=== PATIENT | male | born 1945 | race Caucasian/White ===

== ENCOUNTER → 2017-04-21 10:45 | Outpatient (CLI) | payer SELFPAY ==
--- NOTE | 2017-04-21 10:50 | RAD_ITS ---
STUDY: X-RAY - LUMBAR SPINE REASON FOR EXAM: Male, 71 years old. Pain TECHNIQUE: 5 view(s) of the lumbar spine were obtained. COMPARISON: None FINDINGS: Mild reverse S scoliosis. Diffuse spondylosis. Diffuse demineralization. Diffuse degenerative disc disease. Diffuse facet disease. Arterial calcifications. No compression deformities. Normal alignment. RAD/L/S Spine Min 4 Views IMPRESSION: Diffuse degenerative disc and facet disease with normal alignment and no compression deformity. Electronically Signed: Sreedhar Marrero MD at 8:34 EDT Tel , Service support ,
--- NOTE | 2017-04-21 10:50 | RAD_ITS ---
STUDY: X-RAY - PELVIS AND BILATERAL HIPS REASON FOR EXAM: Male, 71 years old. Back and hip pain TECHNIQUE: Radiological exam, hip, bilateral, with pelvis when performed; minimum of 5 views COMPARISON: None. FINDINGS: There is a non-specific bowel gas pattern. Normal bilateral iliac wings, sacroiliac joints and visualized sacrum. Normal bilateral superior and inferior pubic rami. Normal pubic symphysis. Normal bilateral ischial tuberosities. Mild bilateral hip osteoarthritis. Lower lumbar degenerative disease. Vascular calcifications. Diffuse demineralization. RAD/Hips B/L min 2 views w/ Pelvis IMPRESSION: Mild bilateral hip osteoarthritis. No acute osseous abnormality is evident. Electronically Signed: Sreedhar Marrero MD at 8:33 EDT Tel , Service support ,
--- NOTE | 2017-04-21 10:54 | RAD_ITS ---
STUDY: X-RAY - SACROILIAC JOINTS REASON FOR EXAM: Male, 71 years old. Pain TECHNIQUE: 3 view(s) of the sacroiliac joints were obtained. COMPARISON: None. FINDINGS: Normal bilateral sacroiliac joints. Normal visualized sacral ala and sacrum. Normal visualized iliac bones. Normal visualized soft tissue structures. Lower lumbar degenerative disease. RAD/S-I Jts 3 or More Views IMPRESSION: Normal x-ray examination of the bilateral sacroiliac joints. Electronically Signed: Sreedhar Marrero MD at 8:43 EDT Tel , Service support ,
[2017-04-21 12:13] LABS: Absolute Lymphocyte Count 1.07 X10^3/ul (0.83-4.51); Absolute Neutrophil Count 6.1 X10^3/uL (2.0-7.7); Basophil# 0.03 X10^3/uL; Basophil% 0.4 % (0-1); Eosinophil# 0.21 X10^3/uL; Eosinophils% 2.6 % (0-5); Hematocrit 40.7 % (40-54); Hemoglobin 13.5 g/dl (13.0-16.5); Lymphocyte # 1.07 X10^3/ul (4.0); Mean Corp Hgb Conc 33.2 g/gl (32-36); Mean Corpuscular Hgb 29.2 pg (27.0-32.0); Mean Corpuscular Volume 88.1 fL (80-94); Mean Platelet Vol. 10.4 fl (6.2-12.0); Monocyte# 0.77 X10^3/uL; Monocyte% 9.4 % (0-10); Neutrophil % 74.1 % (47-70); Platelet Count 328 K/mm3 (150-450); RBC Distribution Width CV 13.5 % (11.6-14.6); RBC Distribution Width SD 43.4 fl (35.1-43.9); Red Blood Count 4.62 M/mm3 (4.6-6.2); White Blood Count 8.2 K/mm3 (4.4-11.0)
[2017-04-21 12:14] LABS: POSITIVE COUNT NO; POSITIVE DIFFERENTIAL NO; POSITIVE MORPHOLOGY NO
[2017-04-21 16:10] LABS: ALB/GLOB Ratio 0.9 RATIO (0.9-2.4); AST(SGOT) 58 U/L (15-37); Alanine Aminotransfer ALT/SGPT 60 U/L (16-61); Albumin, Serum 3.4 g/dL (3.2-5.0); Alkaline Phosphatase 87 U/L (45-117); Anion Gap 8 (5-15); BUN 17 mg/dL (7-18); BUN/Creat Ratio 24.3 RATIO (10-20); Calcium,Total 8.5 mg/dL (8.5-10.1); Chloride 106 mmol/L (98-107); Cholesterol 199 mg/dL (200); EST Glomerular Filtration Rate 118 mL/min (>60); Est Glom Filt Rate - Afr Amer 143 mL/min (>60); Globulin 3.6 g/dL (2.2-4.2); Glucose 89 mg/dL (74-106); High Density Lipoprotein 39 mg/dL; Potassium 4.2 mmol/L (3.5-5.1); Sodium Level 141 mmol/L (136-145); Triglycerides 184 mg/dL; Very Low Density Lipoprotein 37 mg/dL (5-40)
== END ==
PROVIDERS: Family Provider Family Medicine; PCP Family Medicine; Visit Provider Family Medicine
DX: M25.551 Pain in right hip (principal); M25.552 Pain in left hip; M54.16 Radiculopathy, lumbar region; I69.398 Other sequelae of cerebral infarction
CPT/HCPCS: 36415; 72110; 72202; 73521; 80053; 80061; 85025

== ENCOUNTER → 2018-01-20 08:29 | Outpatient (CLI) | payer SELFPAY ==
--- NOTE | 2018-01-20 08:51 | RAD_ITS ---
STUDY: X-RAY CHEST REASON FOR EXAM: Male, 72 years old. History of cough. TECHNIQUE: AP and lateral views of the chest. COMPARISON: Comparison is made with prior study dated May 13, 2015. FINDINGS: There is evidence of increased interstitial markings with areas of confluence more prominent in the lower lobes suggestive of chronic interstitial fibrosis. No definite consolidation is seen. There is no demonstrated pleural abnormality. There is mild cardiac enlargement. Normal mediastinum and heena. Normal visualized pulmonary arteries. There is atherosclerotic calcification of the aortic arch with tortuosity. There are degenerative changes of the visualized thoracic spine. There is degenerative osteoarthritis of the bilateral shoulders. There is evidence of a prior fusion in the mid cervical spine. There is no demonstrated abnormality of the visualized soft tissue structures of the upper abdomen. RAD/Chest PA and Lateral IMPRESSION: Findings suggestive of interstitial fibrosis. No focal infiltrate is seen. Electronically Signed: Rony Giles MD at 8:54 EST Tel [phone], Service support ,
--- OUTSIDE RECORDS SUMMARY | 2018-03-08 01:48 | XMS RPT_ITS ---
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 hearing normal and external ears normal; negative hard of hearing Nose Nose: Positive external nose normal, septum normal and no nasal discharge; negative epistaxis or nasal polyp Mouth Mouth: Positive oral mucosae normal, no lesions, edentulous and posterior oropharynx is adequate; negative post nasal drip, malodorous breath or oral thrush present Mallampati Score: II: Mallampati Score Neck Neck: Positive normal visual inspection, full ROM and trachea midline; negative lymphadenopathy or JVD Chest Wall Chest: Positive normal inspection of the chest and symmetric chest movement; negative crepitus or tenderness Resp lung sounds: Positive clear to auscultation, normal expiratory time and diminished; negative wheezes, rhonchi, rales, use of accessory muscles, wheeze present on forced exhalation or dullness to percussion Cardio Cardiac: Positive regular rate, regular rhythm, S1 normal and S2 normal; negative murmur, rub or gallop GI GI: Positive normal to inspection and normal bowel sounds; negative distended, ascites or epigastric tenderness Genitourinary: Positive deferred Musc Musculoskeletal: Positive kyphosis and in a wheelchair; negative scoliosis Skin Pulmonary Skin Exam: Positive intact; negative rash, lesion, ulcers, erythema or dermal atrophy Pulses Pulse: Yes radial pulses present Extremities Extremities: Yes capillary refill normal, No clubbing, No cyanosis, Yes edema (Trace) Location: lower extremity Neuro Neurologic: Yes conversant, Yes cooperative, Yes normal cognition, Yes normal coordination, Yes understands questions Lymph Lymphatic: No lymphadenopathy Psych Appearance: Positive grossly normal Mental Status: Positive mental status grossly normal Mood: Positive congruent mood Affect: Positive normal affect Coding Level of Care Code Off vis,new,level 4 Diagnoses Chronic cough R05 Abnormal CXR R93.89 01/27/18 1259 <Electronically signed by Eliceo Mukherjee MD> Date Eliceo Mukherjee MD Cosigner Signature: Date (if applicable) CC: Wally Epstein MD CHEST PA AND LATERAL Observed: 01/20/2018 Status: F Source: JANA 8:51 AM [facility] REPOSITORY [facility] Imaging Services [address] [place] [address] Chest PA and Lateral MR#: [id number] Acct: [id number] Name: DAVID KRISHNAMURTHY Rep #: [id number] : 1945 M 72 From: Rony Giles MD PCP: Wally Epstein MD Status: REG CLI Study: Chest PA and Lateral Date of Exam: 01/20/18 Exam# [id number] Ordering Dr: Wally Epstein MD STUDY: X-RAY CHEST REASON FOR EXAM: Male, 72 years old. History of cough. TECHNIQUE: AP and lateral views of the chest. COMPARISON: Comparison is made with prior study dated May 13, 2015. FINDINGS: There is evidence of increased interstitial markings with areas of confluence more prominent in the lower lobes suggestive of chronic interstitial fibrosis. No definite consolidation is seen. There is no demonstrated pleural abnormality. There is mild cardiac enlargement. Normal mediastinum and heena. Normal visualized pulmonary arteries. There is atherosclerotic calcification of the aortic arch with tortuosity. There are degenerative changes of the visualized thoracic spine. There is degenerative osteoarthritis of the bilateral shoulders. There is evidence of a prior fusion in the mid cervical spine. There is no demonstrated abnormality of the visualized soft tissue structures of the upper abdomen. RAD/Chest PA and Lateral IMPRESSION: Findings suggestive of interstitial fibrosis. No focal infiltrate is seen. Electronically Signed: Rony Giles MD at 8:54 EST Tel [phone], Service support , CC: Wally Epstein MD Pay Station Department Manager: Signed CBC W/DIFF, AUTOMATED Collected: 04/21/2017 Status: F Source: JANA 10:55 AM [facility] REPOSITORY Order Comment: Order Date: 04/20/17 Order Info: 0184-1 - CBCD TYPE CODE TESTS RESULT OUT OF RANGE REFERENCE UNITS LAB L100.1000 4.4-11.0 K/mm3 Normal WBC 8.2 LAB L100.1200 4.6-6.2 M/mm3 Normal RBC 4.62 LAB L100.1300 13.0-16.5 g/dl Normal HGB 13.5 LAB L100.1400 40-54 % Normal HCT 40.7 LAB L100.1500 80-94 fL Normal MCV 88.1 LAB L100.1600 27.0-32.0 pg Normal MCH 29.2 LAB L100.1700 32-36 g/gl Normal MCHC 33.2 LAB L100.1810 11.6-14.6 % Normal RDW CV 13.5 LAB L100.1820 35.1-43.9 fl Normal RDW SD 43.4 LAB L100.1900 150-450 K/mm3 Normal PLT 328 LAB L100.2000 6.2-12.0 fl Normal MPV 10.4 LAB L100.2100 47-70 % High NEUT% 74.1 LAB L100.2200 19-41 % Low LY% 13.0 LAB L100.2300 0-10 % Normal MONO% 9.4 LAB L100.2400 0-5 % Normal EO% 2.6 LAB L100.2500 0-1 % Normal BASO% 0.4 LAB L100.2550 0.0-0.9 % Normal IM GRAN % 0.500 Result Comment: IG% - Immature Granulocytes (promyelocytes, myelocytes and metamyelocytes) > 1% indicates that a LEFT SHIFT is Present. LAB L100.2620 2.0-7.7 X10 3/uL Normal Absolute Neut 6.1 LAB L100.2720 0.83-4.51 X10 3/ul Normal Absolute Lymph 1.07 Performed By: #### L100.0100, L500.4050, L500.4100 #### [facility] [address] [place], [place], [id number] COMPREHENSIVE METABOLIC Collected: 04/21/2017 Status: F Source: JANA JAY 10:55 AM [facility] REPOSITORY Order Comment: Order Date: 04/20/17 Order Info: [id number] - CMP Order Info: 26350-8 - LIPID TYPE CODE TESTS RESULT OUT OF RANGE REFERENCE UNITS LAB L501.0100 74-106 mg/dL Normal GLU 89 Result Comment: Please note revised GLUCOSE reference range effective 2017. LAB L501.1000 7-18 mg/dL Normal BUN 17 LAB L501.1100 0.70-1.30 mg/dL Normal CREAT,SERUM 0.70 Result Comment: The validity of the calculated GFR AND GFRAA in patients over 70 years has not been determined. Clinical correlation is essential. LAB L501.1110 >60 mL/min Normal EST GFR 118 Result Comment: Non- GFR Calc LAB L501.1115 >60 mL/min Normal EST GFR - AA 143 Result Comment: GFR Calc LAB L501.1300 10-20 RATIO High BUN/CRE 24.3 LAB L501.1500 6.4-8.2 g/dL T Normal PROT 7.0 LAB L501.1800 3.2-5.0 g/dL Normal ALB 3.4 LAB L501.1950 2.2-4.2 g/dL Normal GLOB 3.6 LAB L501.2000 0.9-2.4 RATIO Normal A/G 0.9 LAB L501.2200 8.5-10.1 mg/dL CA Normal 8.5 LAB L501.4100 15-37 U/L High AST 58 LAB L501.4305 45-117 U/L Normal ALK P 87 LAB L501.4405 16-61 U/L Normal ALT 60 Result Comment: Please note revised ALT reference range effective 2017. LAB L501.4600 0.20-1.00 mg/dL Normal T BILI 0.60 LAB L501.5300 136-145 mmol/L Normal NA 141 LAB L501.5600 3.5-5.1 mmol/L Normal K 4.2 LAB L501.5900 98-107 mmol/L Normal CL 106 LAB L501.6100 21.0-32.0 mmol/L Normal CO2 27.0 LAB L501.6200 5-15 Normal GAP 8 Performed By: #### L100.0100, L500.4050, L500.4100 #### [facility] [address] [place], [address] LIPID PROFILE Collected: 04/21/2017 Status: F Source: NABB 10:55 AM [facility] REPOSITORY Order Comment: Order Date: 04/20/17 Order Info: [id number] - CMP Order Info: [id number] - LIPID TYPE CODE TESTS RESULT OUT OF RANGE REFERENCE UNITS LAB L501.4900 200 mg/dL Normal CHOL 199 Result Comment: <200 mg/dL Desirable 200-240 mg/dL Borderline >240 mg/dL High Risk LAB L501.5000 mg/dL Normal TRIG 184 Result Comment: The drugs N-Acetylcysteine and Metamizole may falsely depress this assay. Serum Triglycerides Reference Interval Normal <150 mg/dL Borderline high 150 - 199 mg/dL High 200 - 499 mg/dL Very High > or = 500 mg/dL LAB L501.6400 mg/dL Low HDL 39 Result Comment: The drugs N-Acetylcysteine and Metamizole may falsely depress this assay. Reference Range HDL <40 mg/dL Low HDL Cholesterol HDL >or= 60 mg/dL High HDL Cholesterol LAB L501.6500 0-130 mg/dL Normal LDL 123 LAB L501.6600 5-40 mg/dL Normal VLDL 37 Performed By: #### L100.0100, L500.4050, L500.4100 #### [facility] [address] [place], [address] S-I JTS 3 OR MORE Observed: 04/21/2017 Status: F Source: NABB VIEWS 10:55 AM [facility] REPOSITORY [facility] Imaging Services [address] [place] [address] S-I Jts 3 or More Views MR#: [id number] Acct: [id number] Name: DAVID KRISHNAMURTHY Naila Rep #: [id number] : 1945 M 71 From: Sreedhar Marrero MD PCP: Wally Epstein MD Status: REG CLI Study: S-I Jts 3 or More Views Date of Exam: 04/21/17 Exam# [id number] Ordering Dr: Arun Edwards MD STUDY: X-RAY - SACROILIAC JOINTS REASON FOR EXAM: Male, 71 years old. Pain TECHNIQUE: 3 view(s) of the sacroiliac joints were obtained. COMPARISON: None. FINDINGS: Normal bilateral sacroiliac joints. Normal visualized sacral ala and sacrum. Normal visualized iliac bones. Normal visualized soft tissue structures. Lower lumbar degenerative disease. RAD/S-I Jts 3 or More Views IMPRESSION: Normal x-ray examination of the bilateral sacroiliac joints. Electronically Signed: Sreedhar Marrero MD at 8:43 EDT Tel , Service support , CC: Wally Epstein MD; Arun Edwards MD Pay Station Department Manager: Signed HIPS B/L MIN 2 Observed: 04/21/2017 Status: F Source: NABB VIEWS W/ PELVIS 10:51 AM [facility] REPOSITORY [facility] Imaging Services [address] [place] [address] Hips B/L min 2 views w/ Pelvis MR#: [id number] Acct: [id number] Name: DAVID KRISHNAMURTHY Rep #: [id number] : 1945 71 From: Sreedhar Marrero MD PCP: Wally Epstein MD Status: REG CLI Study: Hips B/L min 2 views w/ Pelvis Date of Exam: 04/21/17 Exam# [id number] Ordering Dr: Arun Edwards MD STUDY: X-RAY - PELVIS AND BILATERAL HIPS REASON FOR EXAM: Male, 71 years old. Back and hip pain TECHNIQUE: Radiological exam, hip, bilateral, with pelvis when performed; minimum of 5 views COMPARISON: None. FINDINGS: There is a non-specific bowel gas pattern. Normal bilateral iliac wings, sacroiliac joints and visualized sacrum. Normal bilateral superior and inferior pubic rami. Normal pubic symphysis. Normal bilateral ischial tuberosities. Mild bilateral hip osteoarthritis. Lower lumbar degenerative disease. Vascular calcifications. Diffuse demineralization. RAD/Hips B/L min 2 views w/ Pelvis IMPRESSION: Mild bilateral hip osteoarthritis. No acute osseous abnormality is evident. Electronically Signed: Sreedhar Marrero MD at 8:33 EDT Tel , Service support , CC: Wally Epstein MD; Arun Edwards MD Pay Station Department Manager: Signed L/S SPINE MIN 4 Observed: 04/21/2017 Status: F Source: NABB VIEWS 10:51 AM [facility] REPOSITORY [facility] Imaging Services [address] [place] [address] L/S Spine Min 4 Views MR#: [id number] Acct: [id number] Name: DAVID KRISHNAMURTHY Rep #: [id number] : 1945 M 71 From: Sreedhar Marrero MD PCP: Wally Epstein MD Status: REG CLI Study: L/S Spine Min 4 Views Date of Exam: 04/21/17 Exam# [id number] Ordering Dr: Arun Edwards MD STUDY: X-RAY - LUMBAR SPINE REASON FOR EXAM: Male, 71 years old. Pain TECHNIQUE: 5 view(s) of the lumbar spine were obtained. COMPARISON: None FINDINGS: Mild reverse S scoliosis. Diffuse spondylosis. Diffuse demineralization. Diffuse degenerative disc disease. Diffuse facet disease. Arterial calcifications. No compression deformities. Normal alignment. RAD/L/S Spine Min 4 Views IMPRESSION: Diffuse degenerative disc and facet disease with normal alignment and no compression deformity. Electronically Signed: Sreedhar Marrero MD at 8:34 EDT Tel , Service support , CC: Wally Epstein MD; Arun Edwards MD Pay Station Department Manager: Signed ALLERGIES ALLERGIES DATE TYPE / CODE NAME / CODE REACTION SEVERITY SOURCE 02/22/2018 Drug albuterol/F00 acted funny [place] [facility] Allergy/4160 [id number]([facility] Hospital 8[address]43(SNOMED M) Repository CT) 05/08/2015 Drug No Known Unknown [facility] Allergy/4160 Allergies/F00 Hospital 02442(SNOMED [id number](RXNOR Repository CT) M) ENCOUNTERS ENCOUNTERS ADMIT/DISCHARGE ACCOUNT ADMITTING ENCOUNTER LOCATION SOURCE NUMBER CLASS 02/22/2018 [id number] [place] [facility] ing:PAVLAB Repository 02/22/2018/ [id number] Ambulatory [facility] [place] [facility] 0 [place] Repository 02/09/2018 [id number] Ambulatory [place] [facility] ing:PSN Repository 02/09/2018 [id number] Ambulatory [facility]Building:[facility] [place] [facility] Repository 01/27/2018/ [id number] Ambulatory B[facility]Building:B [place] 8 1 [place] Repository 01/20/2018 [id number] Ambulatory [facility] 4 [facility] ing:MTRAD Repository 04/21/2017 [id number] Ambulatory [place] [facility] ing:MTLAB Repository PAYERS PAYERS ENCOUNTER GUARANTOR PAYER SUBSCRIBER SOURCE 02/22/2018 DAVID Yoo Primary [facility] [place] [id number] CR Insurance:HAYDEN ARREDONDOB: [address] [id number] [address]Blx: GROUPPolicy Number: Repository Effective (HP) Date: [address] [address]SA: 02/22/2018 Secondary NOT GIVENUNK [place] Insurance:SELF PAY [facility] Number: Effective Repository Date:2018-02-22 02/22/2018 DAVID Yoo Primary NOT GIVENUNK [place] [id number] CR Insurance:SELF PAY [address] [address]Adh: Number: Effective Repository Date:2018-02-11 () 02/09/2018 DAVID Yoo Primary Insurance:[facility] DAVID Yoo [place] [id number] CR PACKAGE PLANPolicy YODERDOB: [address], Number: [id number] [address]Rgv: [id number] Repository Date:2018-01-27 () 02/09/2018 Secondary NOT GIVENUNK [place] [facility] Insurance:SELF PAY [facility] Number: Effective Repository Date:2018-01-27 02/09/2018 DAVID Yoo Primary Insurance:[facility] DAVID Yoo [place] [id number] CR PACKAGE PLANPolicy YODERDOB: [address], Number: [id number] Alamos Medical Center [address]Kms: [id number] Repository Date:2018-01-27 () 02/09/2018 Secondary NOT GIVENUNK [place] Insurance:SELF PAY [facility] Number: Effective Repository Date:2018-02-09 01/27/2018 DAVID Yoo Primary NOT GIVENUNK [place] [id number] CR Insurance:SELF PAY [address] [address]Ayt: Number: Effective Repository Date:2018-01-27 () 01/20/2018 DAVID Yoo Primary Insurance:[facility] DAVID [place] [id number] CR PACKAGE PLANPolicy YODERDOB: [address], Number: [id number] [facility] [address]Kjx: [id number] Repository Date:2018-01-20 () 01/20/2018 Secondary NOT GIVENUNK [place] Insurance:SELF PAY [facility] Number: Effective Repository Date:2018-01-20 04/21/2017 DAVID Yoo Primary NOT GIVENUNK [place] [id number] Insurance:SELF PAY [address] [address]Ntb: Number: Effective Repository Date:2017-04-21 ()
== END ==
PROVIDERS: Family Provider Family Medicine; PCP Family Medicine; Referring Provider Family Medicine; Visit Provider Family Medicine
DX: R05 Cough (principal)
CPT/HCPCS: 71046

== ENCOUNTER → 2018-02-09 06:33 | Outpatient (CLI) | payer SELFPAY, OTHER ==
[2018-01-27 09:35] VITALS: BMI 26.6
--- NOTE | 2018-02-09 06:36 | CT_ITS ---
STUDY: CT CHEST/THORAX WITHOUT CONTRAST REASON FOR EXAM: Male, 72 years old. Cough. RADIATION DOSAGE (If Supplied By Facility): CTDIvol = ( 18.72 ) mGy, DLP = ( 567.45 ) mGycm TECHNIQUE: Transaxial imaging was performed without the administration of intravenous contrast material. Multiplanar coronal and sagittal images were reformatted. Individualized dose optimization techniques were used for this CT. COMPARISON: Upright AP and lateral chest x-ray January 20, 2018. FINDINGS: There is chronic appearing mild, central peribronchial thickening as well as segmental and subsegmental zones of chronic appearing reticular interstitial change. A subpleural 2.45 x 1.8 x 2.55 cm bleb is seen in the anteromedial left upper lobe. There is no demonstrated pleural abnormality. Normal heart and pericardium. There are calcifications of the coronary arteries. There are occasional nonspecific lymph nodes in the mediastinum subcarinal tissues, and aorticopulmonary window. Normal hilar regions. Normal unenhanced pulmonary arteries. There is atherosclerotic calcification of the aortic arch and descending thoracic aorta. There is no demonstrated aneurysm. There is an increased kyphosis of the thoracic spine. There are multi-level degenerative changes of the thoracic spine. There is diffuse decreased attenuation of the hepatic parenchyma, consistent with fatty metamorphosis. CT/Chest without Contrast IMPRESSION: 1. Chronic perihilar bronchial thickening and chronic, fibrotic interstitial changes noted in both lungs. No pneumonic infiltrate. 2. Prescribed calcifications of the coronary arteries and thoracic aorta. 3. Demineralization of the osseous structures. Multilevel degenerative changes of the spine. 4. Fatty infiltration of the liver. Electronically Signed: Alexis Santos MD at 20:03 EST , Service support ,
--- NOTE | 2018-02-09 12:58 | PFT ---
INTRODUCTION: The patient is a 72-year-old male that presents for pulmonary function testing secondary to a diagnosis of cough. Respiratory therapy reports good patient effort. Bronchodilators were used during testing. INTERPRETATION: Forced expiration spirometry demonstrates no evidence of a large airways obstructive ventilatory defect. There was no significant response to aerosolized bronchodilators, based upon strict ATS criteria. Spirograms are of fair quality and plateau normally. Body plethysmography was performed and reveals a decreased TLC to 3.25 L, 71% of predicted, indicative of a mild restrictive ventilatory defect. The remainder of the lung volumes are symmetrically reduced. Diffusing capacity by single breath CO is moderately reduced at 48% of predicted. IMPRESSION: These pulmonary function studies demonstrate the presence of a mild restrictive ventilatory defect with a disproportionate reduction in diffusing capacity. There are no previous pulmonary function studies available for comparison.
== END ==
PROVIDERS: Family Provider Family Medicine; PCP Family Medicine; Referring Provider Internal Medicine Critical Care Medicine; Visit Provider Internal Medicine Critical Care Medicine
DX: R05 Cough (principal); R93.89 Abnormal findings on diagnostic imaging of other specified body structures
CPT/HCPCS: 71250; 94060; 94726; 94729

== ENCOUNTER → 2018-02-22 09:22 | Outpatient (CLI) | payer OTHER, SELFPAY ==
[2018-02-22 09:15] VITALS: BMI 26.6
[2018-02-22 10:29] LABS: Erythrocyte Sedimentation Rate 27 mm/hr (0-20)
[2018-02-22 10:31] LABS: CRP 8.56 mg/L (0.0-3.0); Rheumatoid Factor < 10.0 IU/mL (<15)
[2018-02-24 03:08] LABS: Cytoplasmic Ab (C-ANCA) <1:20 titer (Neg:<1:20)
[2018-02-24 09:55] LABS: CCP IgG Antibodies 32 units (0-19); Perinuclear Ab (P-ANCA) <1:20 titer (Neg:<1:20)
[2018-02-24 09:58] LABS: ANTINUCLEAR ANTIBODIES DIRECT Negative (Negative)
== END ==
PROVIDERS: Family Provider Family Medicine; PCP Family Medicine; Referring Provider Internal Medicine Critical Care Medicine; Visit Provider Internal Medicine Critical Care Medicine
DX: J84.10 Pulmonary fibrosis, unspecified (principal); R05 Cough; R93.89 Abnormal findings on diagnostic imaging of other specified body structures
CPT/HCPCS: 36415; 85652; 86038; 86140; 86200; 86225; 86235; 86256; 86431

== ENCOUNTER → 2018-03-30 10:43 | Outpatient (CLI) | payer SELFPAY ==
[2018-02-22 09:15] VITALS: BMI 26.6
--- NOTE | 2018-03-30 10:48 | RAD_ITS ---
STUDY: X-RAY - PELVIS REASON FOR EXAM: Male, 72 years old. Pain, arthritis TECHNIQUE: One view of the pelvis was obtained. COMPARISON: Bilateral hips dated April 21, 2017 FINDINGS: There is a non-specific bowel gas pattern. There are diffuse vascular calcifications. There are moderate degenerative changes in the lower lumbar spine. The visualized iliac wings, sacroiliac joints and sacrum are unremarkable. No abnormalities are seen in the visualized superior and inferior pubic rami. Normal appearing pubic symphysis. The visualized ischial tuberosities are unremarkable. The proximal right femur shows no significant abnormalities. The right acetabulum shows no significant abnormalities. There is mild articular joint space narrowing of the right hip. The proximal left femur shows no significant abnormalities. The left acetabulum shows no significant abnormalities. There is mild articular joint space narrowing of the left hip. RAD/Pelvis 1 or 2 Views IMPRESSION: Mild degenerative changes are again seen in both hips. Moderate degenerative changes are again seen in the visualized lower spine. Electronically Signed: Diann Boone MD at 11:32 EST , Service support ,
[2018-03-30 11:52] LABS: Absolute Lymphocyte Count 1.17 X10^3/ul (0.83-4.51); Absolute Neutrophil Count 4.9 X10^3/uL (2.0-7.7); Basophil# 0.03 X10^3/uL; Basophil% 0.4 % (0-1); Eosinophil# 0.36 X10^3/uL; Hematocrit 40.9 % (40-54); Hemoglobin 13.3 g/dl (13.0-16.5); Lymphocyte # 1.17 X10^3/ul (4.0); Lymphocyte % 16.3 % (19-41); Mean Corp Hgb Conc 32.5 g/gl (32-36); Mean Corpuscular Hgb 28.4 pg (27.0-32.0); Mean Corpuscular Volume 87.2 fL (80-94); Mean Platelet Vol. 9.9 fl (6.2-12.0); Monocyte# 0.67 X10^3/uL; Monocyte% 9.4 % (0-10); Neutrophil # 4.88 X10^3/uL (2.7-7.7); Neutrophil % 68.2 % (47-70); POSITIVE COUNT NO; POSITIVE DIFFERENTIAL NO; POSITIVE MORPHOLOGY NO; Platelet Count 417 K/mm3 (150-450); RBC Distribution Width CV 13.4 % (11.6-14.6); RBC Distribution Width SD 42.5 fl (35.1-43.9); Red Blood Count 4.69 M/mm3 (4.6-6.2); White Blood Count 7.2 K/mm3 (4.4-11.0)
[2018-03-30 12:15] LABS: ALB/GLOB Ratio 0.8 RATIO (0.9-2.4); AST(SGOT) 37 U/L (15-37); Alanine Aminotransfer ALT/SGPT 37 U/L (16-61); Albumin, Serum 3.4 g/dL (3.2-5.0); Alkaline Phosphatase 112 U/L (45-117); Anion Gap 8 (5-15); BUN 18 mg/dL (7-18); BUN/Creat Ratio 22.9 RATIO (10-20); Calcium,Total 8.2 mg/dL (8.5-10.1); Chloride 98 mmol/L (98-107); Creatinine, Serum 0.79 mg/dL (0.70-1.30); EST Glomerular Filtration Rate 103 mL/min (>60); Est Glom Filt Rate - Afr Amer 124 mL/min (>60); Globulin 4.1 g/dL (2.2-4.2); Glucose 93 mg/dL (74-106); Potassium 3.7 mmol/L (3.5-5.1); Protein, Total 7.5 g/dL (6.4-8.2); Sodium Level 134 mmol/L (136-145)
[2018-04-05 15:27] LABS: CCP IgG Antibodies 36 units (0-19); HEPATITIS B SURFACE AG Negative (Negative); HLA B27 Negative (.); Hep B Surface Antibodies Non Reactive (.); Hep C Antibodies 0.2 s/co ratio (0.0-0.9)
== END ==
PROVIDERS: Family Provider Family Medicine; PCP Family Medicine; Referring Provider Internal Medicine Rheumatology; Visit Provider Internal Medicine Rheumatology
DX: L40.59 Other psoriatic arthropathy (principal); L40.8 Other psoriasis; J84.10 Pulmonary fibrosis, unspecified
CPT/HCPCS: 36415; 72170; 80053; 81374; 85025; 86200; 86706; 86803; 87340

== ENCOUNTER → 2018-07-20 | Outpatient (CLI) | payer SELFPAY ==
[2018-02-22 09:15] VITALS: BMI 26.6
--- NOTE | 2018-07-20 11:37 | RAD_ITS ---
STUDY: X-RAY CHEST REASON FOR EXAM: Male, 73 years old. Cough, shortness of breath, bronchitis TECHNIQUE: PA and lateral views of the chest. COMPARISON: 01/20/2018 FINDINGS: Status post anterior cervical discectomy and fusion lower cervical spine. The lungs are clear and expanded. There is no demonstrated pleural abnormality. There is moderate cardiac enlargement. Normal mediastinum and heena. Normal visualized pulmonary arteries. Normal visualized aortic arch and descending thoracic aorta. Normal visualized thoracic spine. Normal visualized ribs, clavicles, and shoulders. There is no demonstrated abnormality of the visualized soft tissue structures of the upper abdomen. RAD/Chest PA and Lateral IMPRESSION: No active disease. Electronically Signed: Jonas Holder MD at 12:02 EDT Tel , Service support ,
== END | disposition home or self-care (01) ==
LOC: MTRAD 11:32
PROVIDERS: Family Provider Family Medicine; PCP Family Medicine; Referring Provider Family Medicine; Visit Provider Family Medicine
DX: J20.9 Acute bronchitis, unspecified (principal)
CPT/HCPCS: 71046

== ENCOUNTER → 2018-08-03 | Outpatient (CLI) | payer OTHER, SELFPAY ==
[2018-02-22 09:15] VITALS: BMI 26.6
[2018-08-03 12:26] LABS: Absolute Lymphocyte Count 0.98 X10^3/ul (0.83-4.51); Basophil# 0.03 X10^3/uL; Basophil% 0.4 % (0-1); Eosinophil# 0.47 X10^3/uL; Eosinophils% 5.6 % (0-5); Hematocrit 37.2 % (40-54); Hemoglobin 12.3 g/dl (13.0-16.5); Lymphocyte # 0.98 X10^3/ul (4.0); Lymphocyte % 11.6 % (19-41); Mean Corp Hgb Conc 33.1 g/gl (32-36); Mean Corpuscular Hgb 28.9 pg (27.0-32.0); Mean Corpuscular Volume 87.5 fL (80-94); Mean Platelet Vol. 9.6 fl (6.2-12.0); Monocyte# 0.91 X10^3/uL; Monocyte% 10.8 % (0-10); Neutrophil % 70.9 % (47-70); Platelet Count 480 K/mm3 (150-450); RBC Distribution Width CV 13.7 % (11.6-14.6); RBC Distribution Width SD 43.4 fl (35.1-43.9); Red Blood Count 4.25 M/mm3 (4.6-6.2); White Blood Count 8.5 K/mm3 (4.4-11.0)
[2018-08-03 12:35] LABS: POSITIVE COUNT NO; POSITIVE DIFFERENTIAL NO; POSITIVE MORPHOLOGY NO
[2018-08-03 12:57] LABS: BNP,B-Type NATRIURETIC PEPTIDE 17.2 pg/mL (0-100)
[2018-08-03 13:11] LABS: ALB/GLOB Ratio 0.9 RATIO (0.9-2.4); AST(SGOT) 34 U/L (15-37); Alanine Aminotransfer ALT/SGPT 33 U/L (16-61); Albumin, Serum 3.2 g/dL (3.2-5.0); Alkaline Phosphatase 98 U/L (45-117); Anion Gap 3 (5-15); BUN 14 mg/dL (7-18); BUN/Creat Ratio 20.9 RATIO (10-20); Calcium,Total 8.5 mg/dL (8.5-10.1); Chloride 108 mmol/L (98-107); Creatinine, Serum 0.67 mg/dL (0.70-1.30); EST Glomerular Filtration Rate 124 mL/min (>60); Est Glom Filt Rate - Afr Amer 150 mL/min (>60); Globulin 3.4 g/dL (2.2-4.2); Glucose 101 mg/dL (74-106); Potassium 3.9 mmol/L (3.5-5.1); Protein, Total 6.6 g/dL (6.4-8.2); Sodium Level 141 mmol/L (136-145)
== END | disposition home or self-care (01) ==
LOC: MFPLAB 11:07
PROVIDERS: Family Provider Family Medicine; PCP Family Medicine; Referring Provider Family Medicine; Visit Provider Family Medicine
DX: R05 Cough (principal)
CPT/HCPCS: 36415; 80053; 83880; 85025

== ENCOUNTER → 2018-08-23 | Outpatient (CLI) | payer OTHER, SELFPAY ==
[2018-08-23 09:19] VITALS: BMI 26.5
== END | disposition home or self-care (01) ==
LOC: PSN 11:16
PROVIDERS: Family Provider Family Medicine; PCP Family Medicine; Referring Provider Nurse Practitioner Acute Care; Visit Provider Nurse Practitioner Acute Care
DX: J47.1 Bronchiectasis with (acute) exacerbation (principal)
CPT/HCPCS: 94667

== ENCOUNTER 2019-11-16 14:44 | Inpatient (IN) | payer OTHER, SELFPAY ==
[2019-09-21 10:50] VITALS: BMI 26.5
[2019-11-16] VITALS (10 sets, daily range): BP systolic 124–159; BP diastolic 73–105; PULSE 72–85; RESP 16–28; TEMP 36.3–36.6; O2SAT 92–99; BMI 30.2; BMI 21.7; BMI 21.8
--- NOTE | 2019-11-16 15:02 | EKG12_ITS ---
Test Reason : Blood Pressure : / mmHG Vent. Rate : 074 BPM Atrial Rate : 074 BPM P-R Int : 140 ms QRS Dur : 084 ms QT Int : 434 ms P-R-T Axes : 034 009 031 degrees QTc Int : 481 ms Normal sinus rhythm Prolonged QT Abnormal ECG Confirmed by KENYATTA BARBOZA, MEAGHAN ([id number]), deputy editor in chief RITA SIMENTAL ([id number]) on 11/22/2019 11:05:13 AM Referred By: MAYO Confirmed By:SILVER YOU MD
--- NOTE | 2019-11-16 15:03 | CT_ITS ---
STUDY: CT BRAIN WITHOUT CONTRAST REASON FOR EXAM: Male, 74 years old. Dizziness. RADIATION DOSAGE (If Supplied By Facility): CTDIvol = ( 60.81 ) mGy, DLP = ( 1112.69 ) mGycm TECHNIQUE: Transaxial CT imaging of the brain was performed without administration of intravenous contrast material. Individualized dose optimization techniques were used for this CT. COMPARISON: CT of the head, 01/09/2011. FINDINGS: Normal soft tissue structures. Normal calvarium. Normal size ventricles and extra-axial spaces for the patient''s age. There are areas of decreased attenuation within the white matter tracts of the supratentorial brain, consistent with microvascular disease changes. Normal basal ganglia and thalami. Normal brainstem. Normal cerebellum. There is no intracranial hemorrhage. There are no findings of an acute ischemic infarction. There is mucoperiosteal reaction within the ethmoid air cells and bilateral maxillary sinuses. CT/Brain/Head without Contrast IMPRESSION: 1. Chronic involutional changes without evidence of acute intracranial or calvarial abnormality. 2. Sinusitis. Electronically Signed: Chris Servin DO at 16:44 EDT Tel [phone], Service support ,
--- NOTE | 2019-11-16 15:04 | ED.DCSUM_ITS ---
History of Present Illness Chief Complaint: Weakness Informant: Patient Narrative: 74-year-old male with past medical history of rheumatoid arthritis, pulmonary fibrosis, CVA, cervical fracture presents with concern for weakness. Presents with his who states that he has been unable to ambulate for the past 2 days given he is so weak. Describes it as a generalized weakness. Denies any chest pain, shortness of breath, nausea, vomiting, urinary symptoms. Denies any falls. Patient states that he has had a slightly increased cough. Past Medical History - Allergies and Home Meds Allergies/Adverse Reactions: Allergies albuterol Adverse Reaction (Mild, Verified 11/16/19 14:47) acted funny Prior records reviewed: Yes Past Medical History: - - RA, pulmonary fibrosis, CVA, cervical fracture Surgical History: tonsillectomy, - - Back surgery s/p trauma. Lives: Spouse/ Significant Other Smoking Status: Former smoker Alcohol: None Drugs: None - Family History Maternal Family History: Family History (Last Reviewed 09/21/19 @ 10:48 by Jayne Li) Mother Cancer Sister Diabetes Father Heart disease Family History: Reports: No pertinent history Paternal Family History: Family History (Last Reviewed 09/21/19 @ 10:48 by Jayne Li) Mother Cancer Sister Diabetes Father Heart disease Family History: Reports: No pertinent history Review of Systems General: Denies: Chills, Fever, Sweats Eyes: Denies: Visual changes - bilaterally, Diplopia ENT: Denies: Rhinorrhea, Sore throat Cardiovascular: Denies: Chest pain, Palpitations Respiratory: Denies: Dyspnea, Cough, Dyspnea on exertion Gastrointestinal: Denies: Abdominal pain, Nausea, Vomiting, Diarrhea, Melena, Hematochezia Genitourinary: Denies: Dysuria, Hematuria, Frequency Musculoskeletal: Denies: Back pain, Extremity Pain Skin: Denies: Rash, Wounds Neurological: Reports: Weakness. Denies: Headache, Numbness Physical Exam Vital Signs/Narrative: Vital Signs Temp Pulse Resp BP Pulse Ox 11/16/19 14:45 97.8 F 82 16 124/73 H 94 Inital Vital Signs reviewed: Yes General: Well nourished, Well developed, No Acute Distress Head: Normocephalic, Atraumatic Eyes: Perrl, EOMI ENT: Moist mucous membranes, No rhinorrhea Neck: Supple, Nontender Cardiovascular: Regular rate, Regular rhythm, No murmurs Respiratory: No distress, CTA bilaterally, Chest nontender Abdomen: Soft, Nontender, Nondistended, Normal bowel sounds Back: Nontender, Normal Inspection Extremities: Nontender, No edema Skin: Normal color, No rash Neurological: Alert, Oriented x3, Cranial nerves II-XII grossly intact, Normal Strength, Normal Sensation Psychological: Normal affect, Normal Mood Diagnostic/Tx/Re-eval Chest X-Ray - ED: 1 View, - - Bilateral infiltrates Clinical Impression(s) from Imaging Studies Brain CT 11/16/19 15:03 IMPRESSION: 1. Chronic involutional changes without evidence of acute intracranial or calvarial abnormality. 2. Sinusitis. Electronically Signed: Chris Servin DO at 16:44 EDT Tel [phone], Service support , Chest X-Ray 11/16/19 15:38 IMPRESSION: Ill-defined subpleural groundglass opacities are seen more prominent in the lung bases , may represent atypical pneumonia or viral pneumonia (COVID-19 ?). Electronically Signed: Hai Cruz at 16:26 EDT Tel , Service support , Laboratory Data 11/16/19 11/16/19 11/16/19 15:20 15:20 15:20 WBC 6.3 RBC 4.21 L Hgb 12.0 L Hct 36.8 L MCV 87.4 MCH 28.5 MCHC 32.6 RDW Std Deviation 42.8 RDW Coeff of Abad 13.4 Plt Count 415 MPV 9.5 Immature Gran % (Auto) 0.800 Neut % (Auto) 64.6 Lymph % (Auto) 16.2 L [place] % (Auto) 15.7 H Eos % (Auto) 2.2 Baso % (Auto) 0.5 Absolute Neuts (auto) 4.0 Absolute Lymphs (auto) 1.01 Nucleated RBC % 0 PT 13.0 INR 1.0 APTT 26.5 D-Dimer Quant (PE/DVT) Sodium 137 Potassium 3.1 L Chloride 102 Carbon Dioxide 29.0 Anion Gap 6 BUN 20 H Creatinine 0.86 Estim Creat Clear Calc 53.29 Est GFR (MDRD) Af Amer 111 Est GFR (MDRD) Non-Af 92 BUN/Creatinine Ratio 23.1 H Glucose 114 H Lactic Acid Calcium 8.5 Magnesium Total Bilirubin 0.20 AST 29 ALT 26 Alkaline Phosphatase 106 Troponin I < 0.015 Total Protein 7.1 Albumin 3.0 L Globulin 4.1 Albumin/Globulin Ratio 0.7 L Urine Color Urine Clarity Urine pH Ur Specific [place] Urine Protein Urine Glucose (UA) Urine Ketones Urine Occult Blood Urine Nitrite Urine Bilirubin Urine Urobilinogen Ur Leukocyte Esterase Urine RBC Urine WBC Ur Squamous Epith Cells Urine Bacteria Urine Mucus COVID-19 (MARIELLE) POC Glucose 11/16/19 11/16/19 11/16/19 15:20 15:20 16:22 WBC RBC Hgb Hct MCV MCH MCHC RDW Std Deviation RDW Coeff of Abad Plt Count MPV Immature Gran % (Auto) Neut % (Auto) Lymph % (Auto) [place] % (Auto) Eos % (Auto) Baso % (Auto) Absolute Neuts (auto) Absolute Lymphs (auto) Nucleated RBC % PT INR APTT D-Dimer Quant (PE/DVT) Sodium Potassium Chloride Carbon Dioxide Anion Gap BUN Creatinine Estim Creat Clear Calc Est GFR (MDRD) Af Amer Est GFR (MDRD) Non-Af BUN/Creatinine Ratio Glucose Lactic Acid 1.1 Calcium Magnesium 1.8 Total Bilirubin AST ALT Alkaline Phosphatase Troponin I Total Protein Albumin Globulin Albumin/Globulin Ratio Urine Color Yellow Urine Clarity Sl. Cloudy Urine pH 6.0 Ur Specific [place] 1.025 Urine Protein 100 H Urine Glucose (UA) Normal Urine Ketones 5 H Urine Occult Blood 10 H Urine Nitrite Negative Urine Bilirubin Negative Urine Urobilinogen Normal Ur Leukocyte Esterase 25 H Urine RBC 0-5 SEEN Urine WBC 0-5 SEEN Ur Squamous Epith Cells 0 SEEN Urine Bacteria 0 SEEN Urine Mucus 0 SEEN COVID-19 (MARIELLE) POC Glucose 11/16/19 11/16/19 11/16/19 16:56 21:19 21:42 WBC RBC Hgb Hct MCV MCH MCHC RDW Std Deviation RDW Coeff of Abad Plt Count MPV Immature Gran % (Auto) Neut % (Auto) Lymph % (Auto) [place] % (Auto) Eos % (Auto) Baso % (Auto) Absolute Neuts (auto) Absolute Lymphs (auto) Nucleated RBC % PT INR APTT D-Dimer Quant (PE/DVT) 0.62 H* Sodium Potassium Chloride Carbon Dioxide Anion Gap BUN Creatinine Estim Creat Clear Calc Est GFR (MDRD) Af Amer Est GFR (MDRD) Non-Af BUN/Creatinine Ratio Glucose Lactic Acid Calcium Magnesium Total Bilirubin AST ALT Alkaline Phosphatase Troponin I Total Protein Albumin Globulin Albumin/Globulin Ratio Urine Color Urine Clarity Urine pH Ur Specific [place] Urine Protein Urine Glucose (UA) Urine Ketones Urine Occult Blood Urine Nitrite Urine Bilirubin Urine Urobilinogen Ur Leukocyte Esterase Urine RBC Urine WBC Ur Squamous Epith Cells Urine Bacteria Urine Mucus COVID-19 (MARIELLE) Not Detected POC Glucose 159 H - Medical Decision Making Appears well and nontoxic. No focal neurologic deficit. She has a hypokalemia which was replaced by mouth. Chest x-ray concerning for new opacities. Radiologist concern for coronavirus. COVID testing eventually comes back negative. Patient is becoming hypoxemic in the emergency department was started on 3 L nasal cannula. Patient was given Rocephin and azithromycin. Given his oxygen requirement patient will be admitted to the hospital for further treatment and evaluation. Admitted in stable condition. Impression: 1. Bilateral pneumonia 2. Hypoxemia 3. Hypokalemia 4. History of pulmonary fibrosis ED Disposition - Plan for ED Patient: Disposition: Acute Care Hospital [facility]
[2019-11-16 15:37] LABS: Absolute Lymphocyte Count 1.01 X10^3/uL (0.83-4.51); Basophil# 0.03 X10^3/uL; Basophil% 0.5 % (0-1); Eosinophil# 0.14 X10^3/uL; Eosinophils% 2.2 % (0-5); Hematocrit 36.8 % (40-54); Lymphocyte # 1.01 X10^3/ul (4.0); Lymphocyte % 16.2 % (19-41); Mean Corp Hgb Conc 32.6 g/dL (32-36); Mean Corpuscular Hgb 28.5 pg (27.0-32.0); Mean Corpuscular Volume 87.4 fL (80-94); Mean Platelet Vol. 9.5 fl (6.2-12.0); Monocyte# 0.98 X10^3/uL; Monocyte% 15.7 % (0-10); NRBC Flagged by Analyzer 0 % (0-5); Neutrophil # 4.04 X10^3/uL (2.7-7.7); Neutrophil % 64.6 % (47-70); Platelet Count 415 K/mm3 (150-450); RBC Distribution Width CV 13.4 % (11.6-14.6); RBC Distribution Width SD 42.8 fl (35.1-43.9); Red Blood Count 4.21 M/mm3 (4.6-6.2); White Blood Count 6.3 K/mm3 (4.4-11.0)
--- NOTE | 2019-11-16 15:38 | RAD_ITS ---
STUDY: X-RAY CHEST REASON FOR EXAM: Male, 74 years old. COUGH TECHNIQUE: Single AP portable view of the chest. COMPARISON: 07/20/2018 FINDINGS: Ill-defined subpleural groundglass opacities are seen more prominent in the lung bases , may represent atypical pneumonia or viral pneumonia (COVID-19 ?). There is no demonstrated pleural abnormality. Normal size heart. Normal mediastinum and heena. Normal visualized pulmonary arteries. Normal visualized aortic arch and descending thoracic aorta. Normal visualized thoracic spine. There is degenerative osteoarthritis of the bilateral shoulders. Old healed fractures of the left clavicle are noted. There is no demonstrated abnormality of the visualized soft tissue structures of the upper abdomen. RAD/Chest 1 View (Portable) IMPRESSION: Ill-defined subpleural groundglass opacities are seen more prominent in the lung bases , may represent atypical pneumonia or viral pneumonia (COVID-19 ?). Electronically Signed: Hai Cruz, at 16:26 EDT Tel , Service support ,
[2019-11-16 15:47] LABS: Partial Thromboplast Time 26.5 Seconds (24.1-36.2)
[2019-11-16 16:02] LABS: ALB/GLOB Ratio 0.7 RATIO (0.9-2.4); AST(SGOT) 29 U/L (15-37); Alanine Aminotransfer ALT/SGPT 26 U/L (16-61); Alkaline Phosphatase 106 U/L (45-117); Anion Gap 6 (5-15); BUN 20 mg/dL (7-18); BUN/Creat Ratio 23.1 RATIO (10-20); Calcium,Total 8.5 mg/dL (8.5-10.1); Chloride 102 mmol/L (98-107); Creatinine, Serum 0.86 mg/dL (0.70-1.30); EST Glomerular Filtration Rate 92 mL/min (>60); Est Glom Filt Rate - Afr Amer 111 mL/min (>60); Estimated Creatinine Clearance 53.29 ml/min; Globulin 4.1 g/dL (2.2-4.2); Glucose 114 mg/dL (74-106); Potassium 3.1 mmol/L (3.5-5.1); Protein, Total 7.1 g/dL (6.4-8.2); Sodium Level 137 mmol/L (136-145)
[2019-11-16 16:05] LABS: Lactic Acid 1.1 mmol/L (0.4-1.9)
[2019-11-16 16:30] LABS: Bacteria 0 SEEN /hpf (None Seen); Mucous, Urine 0 SEEN /hpf (<or=2+); Squamous Epithelial Cells - UA 0 SEEN /hpf (0-5)
[2019-11-16 16:40] LABS: Color, Urine Yellow (Yellow); Glucose, Dipstick Normal (Normal); Ketone-Dipstick 5 mg/dl (Negative); Leukocyte Esterase-Dipstick 25 /ul (Negative); Nitrite-Dipstick Negative (Negative); Occult Blood-Urine 10 /ul (Negative); Protein-Dipstick 100 mg/dl (Negative); Specific Gravity, Urine 1.025 (1.002-1.030); Urine Bilirubin Dipstick Negative (Negative); Urine Clarity Sl. Cloudy (Clear); Urine Urobilinogen Normal (Normal)
[2019-11-16 17:12] LABS: Red Blood Cells-Urine 0-5 SEEN /hpf (0-5); White Blood Cells 0-5 SEEN /hpf (0-5)
[2019-11-16 18:57] LABS: Magnesium 1.8 mg/dL (1.6-2.6)
[2019-11-16 21:26] LABS: Bedside Glucose 159 mg/dL (70-110)
--- NOTE | 2019-11-16 21:34 | PCM.HP.STD ---
Problem List (1) Pneumonia Status: Acute Qualifiers: Pneumonia type: due to unspecified organism Laterality: bilateral Lung location: unspecified part of lung Qualified Code(s): J18.9 - Pneumonia, unspecified organism (2) Suspected COVID-19 virus infection Status: Suspected (3) Encephalopathy Status: Acute (4) Hypoxia Status: Acute (5) Arthritis Status: Chronic (6) Pulmonary fibrosis Status: Chronic (7) CVA (cerebral vascular accident) Status: Chronic Qualifiers: CVA mechanism: unspecified Qualified Code(s): I63.9 - Cerebral infarction, unspecified (8) BPH (benign prostatic hyperplasia) Status: Chronic Qualifiers: Lower urinary tract symptom presence: presence of symptoms unspecified Qualified Code(s): N40.0 - Benign prostatic hyperplasia without lower urinary tract symptoms (9) History of cervical fracture Status: Chronic (10) Bilateral hearing loss Status: Chronic Qualifiers: Hearing loss type: unspecified Qualified Code(s): H91.93 - Unspecified hearing loss, bilateral History of Present Illness Date of Admission: 11/16/19 Chief Complaint: Weakness, Malaise, Ongoing cough, Hypoxia The patient is a 74 y/o M w/ PMHx: History of CVA w/ UE mild contractures, Chronic BL hearing loss, BPH, Pulmonary fibrosis with Bronchiectasis following w/ Dr. Mukherjee, ? Psoriatic arthritis who presents to the [facility] ED on 11/16/19 with history of increased coughing, increased fatigue with debility, difficulty walking, increased rhinorrhea, noted hypoxia at home but difficulty wearing his oxygen secondary to his worsened rhinorrhea, unchanged ongoing dyspnea with chills without fever prompting ED presentation. He notes productive sputum but clear in color. In the ED his status worsened with increased fatigue, hypoxia requiring supplementation more frequently. He per report uses oxygen with activity at home but his activity tolerance has drastically been decreasing. reports that he has worsened over the last several months with worsened upper and lower extremity weakness, difficulty even using utensils to feed himself. He denies any alteration to his sense of taste or smell, no nausea, emesis, diarrhea or abdominal pain. He denies any recent COVID positive contacts. Patient upon evaluation in the ED does have noted right eye scleral injection, suspect per discussion with coughing fit approximately 2 to 3 weeks prior with ruptured vessel, she notes improving. Work-up in the ED included T 97.8, heart rate 82, BP 124/73, respiratory rate 16, 94% on room air with eventual increased respiratory rate up to 22 with 94% on 2 L nasal cannula, CBC with WC 6.3, hemoglobin 12, platelet 415 without market shift, unremarkable coags, CMP with potassium 3.1, BUN/creatinine 20/0.86, glucose 114, lactic acid 1.1, opponent less than 0.015, urinalysis with elevated specific gravity 1.025, protein 100, ketone 5, occult blood 10, negative nitrite, leukocyte esterase 25 otherwise unremarkable, negative COVID testing, CT brain with chronic involutional changes with no evidence of acute intracranial abnormality, evidence of sinusitis, chest x-ray with ill-defined subpleural groundglass opacities more prominent the lung bases concerning for atypical pneumonia or viral pneumonia. Past Medical History Past Medical History (Chronic Problems): Chronic Problems (Last Reviewed 09/21/19 @ 10:48 by Jayne Li) Arthritis (Chronic) Rheumatoid arthritis (Chronic) Bronchiectasis (Chronic) Pulmonary fibrosis (Chronic) Abnormal CXR (Chronic) Chronic cough (Chronic) CVA (cerebral vascular accident) (Chronic) BPH (benign prostatic hyperplasia) (Chronic) History of cervical fracture (Chronic) Bilateral hearing loss (Chronic) Medical History: Medical History (Last Reviewed 09/21/19 @ 10:48 by Jayne Li) CVA (cerebral vascular accident) (Chronic) I63.9 BPH (benign prostatic hyperplasia) (Chronic) N40.0 History of cervical fracture (Chronic) Z87.81 Bilateral hearing loss (Chronic) H91.93 Interstitial pneumonitis J84.89 Allergies albuterol Adverse Reaction (Mild, Verified 11/16/19 14:47) acted funny Home Medications: Ambulatory Orders Medication Instructions Recorded magnesium oxide 400 mg PO BID cap 01/26/18 apremilast 30 mg tablet 30 mg PO BID 08/23/18 guaifenesin 1,200 mg tablet, 1,200 mg PO BID 09/21/19 extended release 12 hr meloxicam 15 mg tablet 15 mg PO DAILY PRN 09/21/19 ipratropium bromide 42 mcg (0.06 2 spray INTRANASAL TID #15 ml 11/16/19 %) nasal spray Surgical History: Surgical History (Last Reviewed 09/21/19 @ 10:48 by Jayne Li) History of fusion of cervical spine Z98.1 09/01/08, anterior with disectomy, decompression, cornerstone allograft fusion, translation plate C3-4, C4-5 partial tooth removal Surgical History: tonsillectomy, - - Back surgery s/p trauma. Psychiatric History: No pertinent psych hx Lives: Spouse/ Significant Other Smoking Status: Former smoker Tobacco Use: Non-smoker Alcohol: None Drugs: None - *Family History Maternal Family History: Family History (Last Reviewed 09/21/19 @ 10:48 by Jayne Li) Mother Cancer Sister Diabetes Father Heart disease History Items: Cancer Paternal Family History: Family History (Last Reviewed 09/21/19 @ 10:48 by Jayne Li) Mother Cancer Sister Diabetes Father Heart disease History Items: Heart Disease, Hypertension Review of Systems Constitutional: Reports: Anorexia, Chills, Malaise, Weakness, Fatigue. Denies: Fever, Weight Change HEENT: Reports: - - R eye scleral changes.. Denies: Head Aches, Sinus Congestion, Sinus Drainage Cardiovascular: Denies: Chest Pain, Chest Pressure, Chest Tightness, Light Headedness, Orthopnea, Palpitations, Syncope Respiratory: Reports: Cough, Shortness of Breath, Shortness of breath at rest, Shortness of breath upon exertion, Sputum production - Clear.. Denies: Wheezing Gastrointestinal: Denies: Abdominal Pain, Constipation, Diarrhea, Nausea, Vomiting Genitourinary: Denies: Dysuria Musculoskeletal: Reports: Joint Pain. Denies: Joint Tenderness Skin: Denies: Rash, Wounds Neurological: Reports: Balance problems, Focal weakness. Denies: Numbness, Tingling Psychiatric: Denies: Anxiety, Depression, Homicidal Ideations, Suicidal Ideations Hematologic/ Lymphatic: Denies: Easy Bruising, Easy Bleeding VTE Information - Inpt Only VTE Present on Admission: No VTE Mechan Device Prophylaxis: SCD's VTE Pharm Prophylaxis ordered?: Yes Patient Problems: Active and Suspected Problems (Last Reviewed 09/21/19 @ 10:48 by Jayne Li) Pneumonia (Acute) Suspected COVID-19 virus infection (Suspected) Encephalopathy (Acute) Hypoxia (Acute) Subjective: Patient laying in the ED bed, no acute distress but fatigued appearance, mildly increased respiratory rate but no specific accessory muscle usage noted. Objective: Physical Examination: General: awake, alert, oriented x 3 but very fatigued, remains cooperative, laying in the ED bed, fatigued, mildly increased respiratory rate but no obvious distress. ED physician did note transiently patient had decreased responsiveness but clinically improved and normalized by time of hospitalist evaluation. Skin: normal color, turgor, no icterus, cyanosis. HEENT: AT/NC, EOMI, PERRLA, dry MM, notable right scleral injection/appearance ruptured vessel, improving per spouse report, no carotid bruits or JVD noted. Lungs: Significantly reduced breath sounds, greater bases, mild crackles with underlying history of pulmonary fibrosis, no obvious rhonchi or wheezes, mildly increased respiratory rate but no obvious accessory muscle usage. Heart: Regular rate and rhythm; no gallop, rub audible. Abdomen: soft, NTTP, ND, normal BS, no HSM. Extremities: no cyanosis, clubbing, notable upper extremity contractures, chronic with history of CVA. Neurological: patient awake, alert, oriented as noted; cognitive function per spouse baseline intact but slow to respond with significant bilateral hearing loss, hearing aids in place; pupils equally reactive to light and accomodation; cranial nerves II-XII grossly normal, moving all 4 extremities but significant limitations with chronic lower extremity weakness as well as upper extremity weakness and contractures, strength severely global decreased secondary to underlying comorbidities and acute presentation. Psychiatric: affect appears fatigued otherwise normal, no acute evidence of depressive or anxiety feelings. - Physical Exam Vitals/I&O's: Vital Signs Temp Pulse Resp BP Pulse Ox 97.4 F L 77 22 H 133/82 H 94 11/16/19 19:52 11/16/19 19:52 11/16/19 19:52 11/16/19 19:52 11/16/19 19:52 Oxygen Flow Rate (L/min) 2 Oxygen Delivery Method Nasal Cannula Weight: 155 lb Body Mass Index (BMI) 30.2 Finger Stick Blood Glucose 159 Intake and Output for Last 24 Hours 11/14/19 11/15/19 11/16/19 23:59 23:59 23:59 Intake Total 500 / 500 Balance 500 / 500 Laboratory Results 11/16/19 15:20: WBC 6.3, RBC 4.21 L, Hgb 12.0 L, Hct 36.8 L, MCV 87.4, MCH 28.5, MCHC 32.6, RDW Std Deviation 42.8, RDW Coeff of Abad 13.4, Plt Count 415, MPV 9.5, Immature Gran % (Auto) 0.800, Neut % (Auto) 64.6, Lymph % (Auto) 16.2 L, [place] % (Auto) 15.7 H, Eos % (Auto) 2.2, Baso % (Auto) 0.5, Absolute Neuts (auto) 4.0, Absolute Lymphs (auto) 1.01, Nucleated RBC % 0 11/16/19 15:20: PT 13.0, INR 1.0, APTT 26.5 11/16/19 15:20: Sodium 137, Potassium 3.1 L, Chloride 102, Carbon Dioxide 29.0, Anion Gap 6, BUN 20 H, Creatinine 0.86, Estim Creat Clear Calc 53.29, Est GFR (MDRD) Af Amer 111, Est GFR (MDRD) Non-Af 92, BUN/Creatinine Ratio 23.1 H, Glucose 114 H, Calcium 8.5, Total Bilirubin 0.20, AST 29, ALT 26, Alkaline Phosphatase 106, Troponin I < 0.015, Total Protein 7.1, Albumin 3.0 L, Globulin 4.1, Albumin/Globulin Ratio 0.7 L 11/16/19 15:20: Lactic Acid 1.1 11/16/19 15:20: Magnesium 1.8 11/16/19 16:22: Urine Color Yellow, Urine Clarity Sl. Cloudy, Urine pH 6.0, Ur Specific [place] 1.025, Urine Protein 100 H, Urine Glucose (UA) Normal, Urine Ketones 5 H, Urine Occult Blood 10 H, Urine Nitrite Negative, Urine Bilirubin Negative, Urine Urobilinogen Normal, Ur Leukocyte Esterase 25 H, Urine RBC 0-5 SEEN, Urine WBC 0-5 SEEN, Ur Squamous Epith Cells 0 SEEN, Urine Bacteria 0 SEEN, Urine Mucus 0 SEEN 11/16/19 16:56: COVID-19 (MARIELLE) Not Detected 11/16/19 21:19: POC Glucose 159 H Current Medications Ceftriaxone Sodium (Rocephin) 1 gm in 50 mls @ 100 mls/hr IV X1 ONE Stop: 11/16/19 21:46 Azithromycin 500 mg/ Dextrose 255 mls @ 250 mls/hr IV X1 ONE Stop: 11/16/19 22:18 Assessment/Plan All Active Problems (Last Reviewed 09/21/19 @ 10:48 by Jayne Li) Pneumonia (Acute) Encephalopathy (Acute) Hypoxia (Acute) Shortness of breath (Acute) The patient is a 74 y/o M w/ PMHx: History of CVA w/ UE mild contractures, Chronic BL hearing loss, BPH, Pulmonary fibrosis with Bronchiectasis following w/ Dr. Mukherjee, ? Psoriatic arthritis who presents to the [facility] ED on 11/16/19 with history of increased coughing, increased fatigue with debility, difficulty walking, increased rhinorrhea, noted hypoxia at home but difficulty wearing his oxygen secondary to his worsened rhinorrhea, unchanged ongoing dyspnea with chills without fever prompting ED presentation. 1. Acute Encephalopathy secondary to Dyspnea, Cough, Hypoxia, Worsening with Bilateral Pneumonia secondary to Possibly Acute Viral Syndrome, COVID-19 complicated by underlying Pulmonary Fibrosis and Bronchiectasis: COVID testing negative; however, CXR concerning but also underlying chronic lung disease could be contributing, but to be cautious pending further evaluation, will admit to the COVID unit, maintain on telemetry given transient worsened state in the ED, maintain on oxygen with wean as tolerated to room air, PRN albuterol but defer if not absolutely necessary given allergy/side effect hx, maintain on IV Rocephin and Azithromycin, HOB, IS parameters w/ pending sputum cultures and urine antigens, will obtain D-dimer, procalcitonin, CRP, CPK, Ferritin, LDH, cycle cardiac enzymes, continue supportive care including q 2 hour turning including prone given no prone bed availability and judicious hydration. Will request Pulmonary consultation as they follow him outpatient and notable underlying pulmonary disease. Patient may necessitate CT chest. 2. Hx CVA: Patient with remote CVA with bilateral upper extremity contractures complicated by history of trauma with lower extremity weakness concurrently, will continue aspirin therapy, not on any hypertensive regimen, pressure initially elevated in the ED but normalized, continue to closely monitor and add regimen if appropriate, not on statin therapy. Continue aggressive positional changes, PT, OT consultations for discharge planning as well as case management involvement for home needs. Given patient chronic debilitated state, worsening discussed palliative care and patient noted some interest but would discuss and notify staff of preference. 3. Elevated BP without hypertensive diagnosis: Noted elevated BP in the ED, normalized, continue to closely monitor and given CVA history add regimen if appropriate. 4. BPH: In the past previously on Flomax, not currently listed, continue to closely monitor and add if appropriate. 5. Arthritis, possibly psoriatic: We will continue patient apremilast regimen. 6. DVT prophylaxis: SCDs, Lovenox. 7. CODE status: Patient does not have living will nor HCPOA set-up. Discussed CODE status at length including difference between FULL code, DNR-CCA and DNR-CC status. Following discussions about the differences in these status, requested DNR-CCA, no intubation status given significant co-morbidities and age. Advanced Care Planning Face to Face Time: 16 minutes. Inpatient E&M: 95687 Init Hosp L3 Procedures: 97957 Advncd Care Plan 30 Min
[2019-11-16] MEDS: Ceftriaxone 1 GM/50 ML BAG IV (22:04)
[2019-11-16 22:17] LABS: D-Dimer Quantitative (DVT/PE) 0.62 FEU/ug/m (0.27-0.49)
--- NOTE | 2019-11-16 22:21 | CT_ITS ---
STUDY: CTA CHEST REASON FOR EXAM: Male, 74 years old. Dyspnea. Hypoxia. History of rheumatoid arthritis. History of prior CVA. RADIATION DOSAGE (If Supplied By Facility): CTDIvol = ( 12.66 ) mGy, DLP = ( 437.64 ) mGycm TECHNIQUE: The examination was performed with the intravenous administration of IV 75mL [id number]-[id number]. Post-processing of the angiographic images was performed, with multiplanar reformation and 3D reconstruction. Individualized dose optimization techniques were used for this CT. COMPARISON: CT of the chest, 02/09/2018. Chest, 11/16/2019. FINDINGS: Normal enhancement of the main pulmonary artery and right and left pulmonary arteries. Normal enhancement of the bilateral peripheral pulmonary arteries. There is no demonstrated pulmonary embolism. There is mild aortic tortuosity and atherosclerotic changes of the thoracic aorta without aneurysm. There is no demonstrated aortic dissection. The heart is mildly enlarged. Normal pericardium. There are coronary artery calcifications. Normal mediastinum. Normal hilar regions. Normal visualized trachea and bronchi. The lungs are well expanded. Vague groundglass densities throughout both lungs without focal consolidation or mass. Normal pleura. Normal chest wall structures. There are degenerative changes of thoracic spine. Normal visualized upper abdomen. CT/CTA Chest W/WO Contrast IMPRESSION: 1. No evidence of pulmonary embolus. 2. No aortic dissection or aneurysm. 3. Minimal ground glass infiltrates most marked in the upper lobes. This appears unchanged. 4. Mild cardiomegaly. 5. Degenerative changes of the thoracic spine. Electronically Signed: Chris Servin DO at 23:47 EDT Tel [phone], Service support ,
[2019-11-16 23:01] LABS: Allen Test Positive; Base Excess 2 mmol/L (-2 to +2); Bicarbonate 26.9 mmol/L (22-26); Blood Gas Specimen Type ART; O2 Delivery Device Cannula; PO2 85 mmHG (75-100); SITE R Radial; SO2 97 % (95-99); Total Carbon Dioxide 28 mmol/L; pCO2 41.2 mmHg (35-45); pH 7.42 (7.35-7.45)
[2019-11-17] VITALS (12 sets, daily range): BP systolic 127–142; BP diastolic 66–78; PULSE 65–140; RESP 16–24; TEMP 36.6–36.9; O2SAT 92–97
[2019-11-17] MEDS: 0.9% Normal Saline 1,000 ML 100 ML IV ×3 (00:10→18:22)
[2019-11-17] MEDS: guaiFENesin 1,200 MG Tablet 1200 MG PO ×2 (00:42→09:03)
[2019-11-17] MEDS: Ipratropium Bromide 0.06% NASAL SPRAY 2 SPRAY NASAL ×4 (00:42→21:40)
[2019-11-17] MEDS: Famotidine 20 MG Tablet PO ×3 (00:42→21:40)
[2019-11-17 00:51] LABS: Procalcitonin 0.08 ng/mL (0.00-0.09)
[2019-11-17 01:40] LABS: Ferritin 296 ng/mL (26-388); LDH 226 U/L (87-241)
[2019-11-17] MEDS: 0.9% Saline Lock 10 ML Syringe IV (05:52)
--- NOTE | 2019-11-17 06:04 | PCM.CONS.PUL ---
Reason for Consult Date of Consultation: 11/17/19 Reason for Consultation: Questionable COVID, pneumonia, hypoxia, underlying pulmonary fibrosis History of Present Illness: The patient is a 74-year-old male, with a history as outlined below, who presented to the emergency department on November 15 with complaints of generalized malaise and weakness. The patient is currently followed by Dr. Mukherjee in the pulmonary medicine clinic due to a history of pulmonary fibrosis and bronchiectasis. The patient also has a known history of rheumatoid arthritis. Pulmonary function studies last completed in February 2018 revealed evidence of a mild restrictive ventilatory impairment with disproportionate reduction in diffusing capacity. The patient is supposed to utilize supplemental oxygen in his home environment, but utilizes it sporadically. The patient does have mild shortness of breath along with a cough. He also reports the presence of rhinorrhea. On presentation to the emergency department, the patient was initially noted to be afebrile and hemodynamically stable. Laboratory evaluation revealed no evidence of a leukocytosis. Coagulation profile was within normal limits. Chemistry profile was only notable for a potassium of 3.1. Lactate was within normal limits. Procalcitonin was normal. Troponin was negative. Coronavirus PCR was negative. Head CT revealed chronic involutional changes of the brain along with bilateral maxillary sinusitis. CTA chest was obtained which showed no evidence for pulmonary embolism. Ill-defined groundglass and cystic changes were noted bilaterally, most pronounced in the upper lobes. This appears similar to prior chest imaging from 2019. The patient was subsequently placed on antimicrobials and admitted to the progressive care unit for further management. Past Medical History Past Medical History (Chronic Problems): Chronic Problems (Last Reviewed 09/21/19 @ 10:48 by Jayne Li) Arthritis (Chronic) Rheumatoid arthritis (Chronic) Bronchiectasis (Chronic) Pulmonary fibrosis (Chronic) Abnormal CXR (Chronic) Chronic cough (Chronic) CVA (cerebral vascular accident) (Chronic) BPH (benign prostatic hyperplasia) (Chronic) History of cervical fracture (Chronic) Bilateral hearing loss (Chronic) Medical History: Medical History (Last Reviewed 09/21/19 @ 10:48 by Jayne Li) CVA (cerebral vascular accident) (Chronic) I63.9 BPH (benign prostatic hyperplasia) (Chronic) N40.0 History of cervical fracture (Chronic) Z87.81 Bilateral hearing loss (Chronic) H91.93 Interstitial pneumonitis J84.89 Allergies albuterol Adverse Reaction (Mild, Verified 11/16/19 14:47) acted funny Home Medications: Ambulatory Orders Medication Instructions Recorded magnesium oxide 400 mg PO BID cap 01/26/18 apremilast 30 mg tablet 30 mg PO BID 08/23/18 guaifenesin 1,200 mg tablet, 1,200 mg PO BID 09/21/19 extended release 12 hr meloxicam 15 mg tablet 15 mg PO DAILY PRN 09/21/19 ipratropium bromide 42 mcg (0.06 2 spray INTRANASAL TID #15 ml 11/16/19 %) nasal spray Surgical History: Surgical History (Last Reviewed 09/21/19 @ 10:48 by Jayne Li) History of fusion of cervical spine Z98.1 09/01/08, anterior with disectomy, decompression, cornerstone allograft fusion, translation plate C3-4, C4-5 partial tooth removal Surgical History: tonsillectomy, - - Back surgery s/p trauma. Psychiatric History: No pertinent psych hx Lives: Spouse/ Significant Other Smoking Status: Never smoker Tobacco Use: Non-smoker Alcohol: None Drugs: None - *Family History Maternal Family History: Family History (Last Reviewed 09/21/19 @ 10:48 by Jayne Li) Mother Cancer Sister Diabetes Father Heart disease History Items: Cancer Paternal Family History: Family History (Last Reviewed 09/21/19 @ 10:48 by Jayne Li) Mother Cancer Sister Diabetes Father Heart disease History Items: Heart Disease, Hypertension Review of Systems Constitutional: Reports: Malaise, Weakness, Fatigue Eyes: Reports: Conjunctivae Inflammation HEENT: Reports: Difficulty Hearing, Nasal Congestion Cardiovascular: Denies: Chest Pain, Palpitations Respiratory: Reports: Cough, Shortness of Breath Gastrointestinal: Denies: Abdominal Pain, Nausea, Vomiting Genitourinary: Denies: Dysuria Musculoskeletal: Reports: Joint Pain. Denies: Joint Tenderness Skin: Denies: Rash, Wounds Neurological: Denies: Numbness, Tingling, Focal weakness Psychiatric: Denies: Anxiety, Depression, Homicidal Ideations, Suicidal Ideations Hematologic/ Lymphatic: Denies: Easy Bruising, Easy Bleeding Patient Problems: Active and Suspected Problems (Last Reviewed 09/21/19 @ 10:48 by Jayne Li) Pneumonia (Acute) Suspected COVID-19 virus infection (Suspected) Encephalopathy (Acute) Hypoxia (Acute) Objective: The patient's most recent lab work, culture data and imaging studies have all been personally reviewed. Coronavirus PCR was negative. Strep and urine Legionella antigens were negative. Blood cultures are pending. Respiratory viral panel was positive for rhinovirus. - Physical Exam Vitals/I&O's: Vital Signs Temp Pulse Resp BP Pulse Ox 98.1 F 65 18 127/68 H 97 11/17/19 03:48 11/17/19 03:48 11/17/19 03:48 11/17/19 03:48 11/17/19 03:48 Oxygen Flow Rate (L/min) 1 Oxygen Delivery Method Nasal Cannula Weight: 139 lb 1.787 oz Body Mass Index (BMI) 21.7 Finger Stick Blood Glucose 159 Intake and Output for Last 24 Hours 11/15/19 11/16/19 11/17/19 23:59 23:59 23:59 Intake Total 805 / 805 710 / 710 Balance 805 / 805 710 / 710 General: Alert, Cooperative, No apparent distress, - - Extremely hard of hearing. HEENT: Atraumatic, - - Right scleral injection Oral: No Gingival or Mucosal Lesions/ Ulcerations Neck: Supple, No Nodes, Trachea Midline Lungs: No rhonchi, No wheeze, Diminished, Rales Cardiovascular: Regular rate, Regular Rhythm Abdomen: Bowel Sounds Present, Soft, Non Tender Extremities: No clubbing, No cyanosis, No edema Skin: No breakdown Musculoskeletal: Arthritic Changes Lymphatic: No Cervical, Supraclavicular, or Inguinal Adenopathy Neurological: Cranial nerves II-XII grossly intact, Neuro grossly intact Psych/Mental Status: Normal Affect, Appropriate Labs (Last 48 Hours) 11/16/19 11/16/19 11/16/19 15:20 15:20 15:20 WBC 6.3 RBC 4.21 L Hgb 12.0 L Hct 36.8 L MCV 87.4 MCH 28.5 MCHC 32.6 RDW Std Deviation 42.8 RDW Coeff of Abad 13.4 Plt Count 415 MPV 9.5 Immature Gran % (Auto) 0.800 Neut % (Auto) 64.6 Lymph % (Auto) 16.2 L [place] % (Auto) 15.7 H Eos % (Auto) 2.2 Baso % (Auto) 0.5 Absolute Neuts (auto) 4.0 Absolute Lymphs (auto) 1.01 Nucleated RBC % 0 PT 13.0 INR 1.0 APTT 26.5 D-Dimer Quant (PE/DVT) Specimen Type Sample Site pH Bicarbonate Actual Total CO2 Base Excess O2 Saturation ABG pCO2 ABG pO2 Sha Test O2 Delivery Device Liter Flow Sodium 137 Potassium 3.1 L Chloride 102 Carbon Dioxide 29.0 Anion Gap 6 BUN 20 H Creatinine 0.86 Estim Creat Clear Calc 53.29 Est GFR (MDRD) Af Amer 111 Est GFR (MDRD) Non-Af 92 BUN/Creatinine Ratio 23.1 H Glucose 114 H Lactic Acid Calcium 8.5 Magnesium Ferritin Total Bilirubin 0.20 AST 29 ALT 26 Alkaline Phosphatase 106 Lactate Dehydrogenase Troponin I < 0.015 C-React Prot Ext Range Total Protein 7.1 Albumin 3.0 L Globulin 4.1 Albumin/Globulin Ratio 0.7 L Procalcitonin Urine Color Urine Clarity Urine pH Ur Specific [place] Urine Protein Urine Glucose (UA) Urine Ketones Urine Occult Blood Urine Nitrite Urine Bilirubin Urine Urobilinogen Ur Leukocyte Esterase Urine RBC Urine WBC Ur Squamous Epith Cells Urine Bacteria Urine Mucus COVID-19 (MARIELLE) POC Glucose 11/16/19 11/16/19 11/16/19 15:20 15:20 15:20 WBC RBC Hgb Hct MCV MCH MCHC RDW Std Deviation RDW Coeff of Abad Plt Count MPV Immature Gran % (Auto) Neut % (Auto) Lymph % (Auto) [place] % (Auto) Eos % (Auto) Baso % (Auto) Absolute Neuts (auto) Absolute Lymphs (auto) Nucleated RBC % PT INR APTT D-Dimer Quant (PE/DVT) Specimen Type Sample Site pH Bicarbonate Actual Total CO2 Base Excess O2 Saturation ABG pCO2 ABG pO2 Sha Test O2 Delivery Device Liter Flow Sodium Potassium Chloride Carbon Dioxide Anion Gap BUN Creatinine Estim Creat Clear Calc Est GFR (MDRD) Af Amer Est GFR (MDRD) Non-Af BUN/Creatinine Ratio Glucose Lactic Acid 1.1 Calcium Magnesium 1.8 Ferritin 296 Total Bilirubin AST ALT Alkaline Phosphatase Lactate Dehydrogenase 226 Troponin I C-React Prot Ext Range 58.80 H Total Protein Albumin Globulin Albumin/Globulin Ratio Procalcitonin Urine Color Urine Clarity Urine pH Ur Specific [place] Urine Protein Urine Glucose (UA) Urine Ketones Urine Occult Blood Urine Nitrite Urine Bilirubin Urine Urobilinogen Ur Leukocyte Esterase Urine RBC Urine WBC Ur Squamous Epith Cells Urine Bacteria Urine Mucus COVID-19 (MARIELLE) POC Glucose 11/16/19 11/16/19 11/16/19 16:22 16:56 21:19 WBC RBC Hgb Hct MCV MCH MCHC RDW Std Deviation RDW Coeff of Abad Plt Count MPV Immature Gran % (Auto) Neut % (Auto) Lymph % (Auto) [place] % (Auto) Eos % (Auto) Baso % (Auto) Absolute Neuts (auto) Absolute Lymphs (auto) Nucleated RBC % PT INR APTT D-Dimer Quant (PE/DVT) Specimen Type Sample Site pH Bicarbonate Actual Total CO2 Base Excess O2 Saturation ABG pCO2 ABG pO2 Sha Test O2 Delivery Device Liter Flow Sodium Potassium Chloride Carbon Dioxide Anion Gap BUN Creatinine Estim Creat Clear Calc Est GFR (MDRD) Af Amer Est GFR (MDRD) Non-Af BUN/Creatinine Ratio Glucose Lactic Acid Calcium Magnesium Ferritin Total Bilirubin AST ALT Alkaline Phosphatase Lactate Dehydrogenase Troponin I C-React Prot Ext Range Total Protein Albumin Globulin Albumin/Globulin Ratio Procalcitonin Urine Color Yellow Urine Clarity Sl. Cloudy Urine pH 6.0 Ur Specific [place] 1.025 Urine Protein 100 H Urine Glucose (UA) Normal Urine Ketones 5 H Urine Occult Blood 10 H Urine Nitrite Negative Urine Bilirubin Negative Urine Urobilinogen Normal Ur Leukocyte Esterase 25 H Urine RBC 0-5 SEEN Urine WBC 0-5 SEEN Ur Squamous Epith Cells 0 SEEN Urine Bacteria 0 SEEN Urine Mucus 0 SEEN COVID-19 (MARIELLE) Not Detected POC Glucose 159 H 11/16/19 11/16/19 11/16/19 21:42 22:00 22:57 WBC RBC Hgb Hct MCV MCH MCHC RDW Std Deviation RDW Coeff of Abad Plt Count MPV Immature Gran % (Auto) Neut % (Auto) Lymph % (Auto) [place] % (Auto) Eos % (Auto) Baso % (Auto) Absolute Neuts (auto) Absolute Lymphs (auto) Nucleated RBC % PT INR APTT D-Dimer Quant (PE/DVT) 0.62 H* Specimen Type ART Sample Site R Radial pH 7.42 Bicarbonate Actual 26.9 H Total CO2 28 Base Excess 2 O2 Saturation 97 ABG pCO2 41.2 ABG pO2 85 Sha Test Positive O2 Delivery Device Cannula Liter Flow 2.0 Sodium Potassium Chloride Carbon Dioxide Anion Gap BUN Creatinine Estim Creat Clear Calc Est GFR (MDRD) Af Amer Est GFR (MDRD) Non-Af BUN/Creatinine Ratio Glucose Lactic Acid 1.0 Calcium Magnesium Ferritin Total Bilirubin AST ALT Alkaline Phosphatase Lactate Dehydrogenase Troponin I C-React Prot Ext Range Total Protein Albumin Globulin Albumin/Globulin Ratio Procalcitonin Urine Color Urine Clarity Urine pH Ur Specific [place] Urine Protein Urine Glucose (UA) Urine Ketones Urine Occult Blood Urine Nitrite Urine Bilirubin Urine Urobilinogen Ur Leukocyte Esterase Urine RBC Urine WBC Ur Squamous Epith Cells Urine Bacteria Urine Mucus COVID-19 (MARIELLE) POC Glucose 11/17/19 11/17/19 11/17/19 00:10 00:10 03:05 WBC RBC Hgb Hct MCV MCH MCHC RDW Std Deviation RDW Coeff of Abad Plt Count MPV Immature Gran % (Auto) Neut % (Auto) Lymph % (Auto) [place] % (Auto) Eos % (Auto) Baso % (Auto) Absolute Neuts (auto) Absolute Lymphs (auto) Nucleated RBC % PT INR APTT D-Dimer Quant (PE/DVT) Specimen Type Sample Site pH Bicarbonate Actual Total CO2 Base Excess O2 Saturation ABG pCO2 ABG pO2 Sha Test O2 Delivery Device Liter Flow Sodium Potassium Chloride Carbon Dioxide Anion Gap BUN Creatinine Estim Creat Clear Calc Est GFR (MDRD) Af Amer Est GFR (MDRD) Non-Af BUN/Creatinine Ratio Glucose Lactic Acid Calcium Magnesium Ferritin Total Bilirubin AST ALT Alkaline Phosphatase Lactate Dehydrogenase Troponin I < 0.015 < 0.015 C-React Prot Ext Range Total Protein Albumin Globulin Albumin/Globulin Ratio Procalcitonin 0.08 Urine Color Urine Clarity Urine pH Ur Specific [place] Urine Protein Urine Glucose (UA) Urine Ketones Urine Occult Blood Urine Nitrite Urine Bilirubin Urine Urobilinogen Ur Leukocyte Esterase Urine RBC Urine WBC Ur Squamous Epith Cells Urine Bacteria Urine Mucus COVID-19 (MARIELLE) POC Glucose 11/17/19 11/17/19 11/17/19 06:00 06:00 06:00 WBC 5.7 RBC 3.94 L Hgb 11.2 L Hct 34.7 L MCV 88.1 MCH 28.4 MCHC 32.3 RDW Std Deviation 43.8 RDW Coeff of Abad 13.4 Plt Count 354 MPV 9.5 Immature Gran % (Auto) 0.700 Neut % (Auto) 63.5 Lymph % (Auto) 17.5 L [place] % (Auto) 13.2 H Eos % (Auto) 4.2 Baso % (Auto) 0.9 Absolute Neuts (auto) 3.6 Absolute Lymphs (auto) 0.99 Nucleated RBC % 0 PT INR APTT D-Dimer Quant (PE/DVT) Specimen Type Sample Site pH Bicarbonate Actual Total CO2 Base Excess O2 Saturation ABG pCO2 ABG pO2 Sha Test O2 Delivery Device Liter Flow Sodium Pending Potassium Pending Chloride Pending Carbon Dioxide Pending Anion Gap Pending BUN Pending Creatinine Pending Estim Creat Clear Calc Est GFR (MDRD) Af Amer Pending Est GFR (MDRD) Non-Af Pending BUN/Creatinine Ratio Pending Glucose Pending Lactic Acid Calcium Pending Magnesium Ferritin Total Bilirubin Pending AST Pending ALT Pending Alkaline Phosphatase Pending Lactate Dehydrogenase Troponin I Pending C-React Prot Ext Range Total Protein Pending Albumin Pending Globulin Albumin/Globulin Ratio Procalcitonin Urine Color Urine Clarity Urine pH Ur Specific [place] Urine Protein Urine Glucose (UA) Urine Ketones Urine Occult Blood Urine Nitrite Urine Bilirubin Urine Urobilinogen Ur Leukocyte Esterase Urine RBC Urine WBC Ur Squamous Epith Cells Urine Bacteria Urine Mucus COVID-19 (MARIELLE) POC Glucose Microbiology 11/16/19 00:00 Urine, Clean Catch Streptococcus pneumoniae Antigen (M - Final 11/16/19 00:00 Urine, Clean Catch Legionella Antigen - Final Clinical Impression(s) from Imaging Studies Brain CT 11/16/19 15:03 IMPRESSION: 1. Chronic involutional changes without evidence of acute intracranial or calvarial abnormality. 2. Sinusitis. Electronically Signed: Chris Servin DO at 16:44 EDT Tel [phone], Service support , Chest X-Ray 11/16/19 15:38 IMPRESSION: Ill-defined subpleural groundglass opacities are seen more prominent in the lung bases , may represent atypical pneumonia or viral pneumonia (COVID-19 ?). Electronically Signed: Hai Cruz at 16:26 EDT Tel , Service support , Chest CTA 11/16/19 22:21 IMPRESSION: 1. No evidence of pulmonary embolus. 2. No aortic dissection or aneurysm. 3. Minimal ground glass infiltrates most marked in the upper lobes. This appears unchanged. 4. Mild cardiomegaly. 5. Degenerative changes of the thoracic spine. Electronically Signed: Chris ServinDO at 23:47 EDT Tel [phone], Service support , Current Medications Acetaminophen (Tylenol) 650 mg PO Q6H PRN PRN PRN Reason: Pain Score 1-10/Temp > 100.7 F Al Hydroxide/Mg Hydroxide (Mylanta Ii) 30 ml PO Q6H PRN PRN PRN Reason: Gastric Burning Albuterol Sulfate (Ventolin Aerosols) 2.5 mg INHALATION Q2H PRN PRN PRN Reason: Dyspnea, wheezing Aspirin (Aspirin, Baby) 81 mg PO DAILY@0800 [facility] Enoxaparin Sodium (Lovenox) 40 mg SC DAILY [facility] Famotidine (Pepcid) 20 mg PO BID [facility] Last Admin: 11/17/19 00:42 Dose: 20 mg Documented by: Guaifenesin (Mucinex) 1,200 mg PO BID [facility] Last Admin: 11/17/19 00:42 Dose: 1,200 mg Documented by: Sodium Chloride () 1,000 mls @ 100 mls/hr IV .Q10H [facility] Last Infusion: 11/17/19 04:46 Dose: 100 mls/hr Documented by: Ceftriaxone Sodium 2 gm/ (Sodium Chloride) 50 mls @ 100 mls/hr IV Q24H [facility] Azithromycin 500 mg/ Dextrose 255 mls @ 250 mls/hr IV Q24H [facility] Sodium Chloride () 250 mls @ 15 mls/hr IV .[id number] PRN PRN Reason: Saline Flush Sodium Chloride () 250 mls @ 15 mls/hr IV .[id number] PRN PRN Reason: Additional IVPB Infusion Ipratropium [place] (Atrovent Nasal [place] (G)) 2 spray NASAL TID [facility] Last Admin: 11/17/19 05:52 Dose: 2 sprays Documented by: Magnesium Chloride ([id number]) 128 mg PO BID [facility] Magnesium Hydroxide (Milk Of Magnesia) 30 ml PO DAILY PRN PRN PRN Reason: Constipation Melatonin (Melatonin) 3 mg PO QHS PRN PRN PRN Reason: INSOMNIA Meloxicam (Mobic) 15 mg PO DAILY PRN PRN PRN Reason: Pain Score 1-10 Morphine Sulfate () 2 mg IV Q3H PRN PRN PRN Reason: Pain Score 6-10 Non-Formulary Medication (Apremilast) 30 mg PO BID [facility] Ondansetron HCl (Zofran) 4 mg IV Q8H PRN PRN PRN Reason: NAUSEA/VOMITING Oxycodone HCl (Oxyir) 5 mg PO Q4H PRN PRN PRN Reason: Pain Score 4-5 Prochlorperazine Edisylate (Compazine Iv) 5 mg IV Q4H PRN PRN PRN Reason: Breakthrough Nausea/Vomiting Psyllium Hydrophilic Mucilloid (Metamucil) 1 packet PO DAILY PRN PRN PRN Reason: Constipation Senna/Docusate Sodium (Senokot-S, [place]-Colace) 2 tablet PO BID PRN PRN PRN Reason: Constipation Sodium Chloride () 10 - 40 ml IV UD PRN PRN Reason: SALINE FLUSH Last Admin: 11/17/19 05:52 Dose: 30 ml Documented by: Throat Lozenges (Cepacol Sore Throat Lozenge) 1 lozenge MUCOUS MEM Q2H PRN PRN PRN Reason: SORE THROAT Assessment/Plan All Active Problems (Last Reviewed 09/21/19 @ 10:48 by Jayne Li) Pneumonia (Acute) Encephalopathy (Acute) Hypoxia (Acute) Shortness of breath (Acute) RECOMMENDATIONS: 1. Okay to discontinue coronavirus precautions. 2. Wean supplemental oxygen as tolerated. (Patient requires 2 L/min at baseline) 3. Encourage incentive spirometer use and mobilize patient as tolerated. 4. Bronchopulmonary hygiene, given history of bronchiectasis. IMPRESSIONS: 1. Shortness of breath/cough/generalized malaise The patient presented with a number of symptoms consistent with a viral etiology. Subsequent work-up was negative for coronavirus. CT chest did reveal groundglass changes, although these appear chronic in nature and likely related to the patient's pulmonary fibrosis. The patient has been afebrile and hemodynamically stable, without elevated white blood cell count throughout his hospital course. Respiratory viral panel was positive for rhinovirus. 2. Personal history of interstitial lung disease/bronchiectasis The patient does have a baseline oxygen requirement of 2 L/min of supplemental oxygen with exertion, with questionable outpatient compliance. This note was generated with [employer] dictation software. It may contain incorrect words, spelling, and punctuation that were not noted in checking the note before signing. Inpatient E&M: 06172 Init Hosp L3
[2019-11-17 06:08] LABS: Absolute Lymphocyte Count 0.99 X10^3/uL (0.83-4.51); Absolute Neutrophil Count 3.6 X10^3/uL (2.0-7.7); Basophil# 0.05 X10^3/uL; Basophil% 0.9 % (0-1); Eosinophil# 0.24 X10^3/uL; Eosinophils% 4.2 % (0-5); Hematocrit 34.7 % (40-54); Hemoglobin 11.2 g/dL (13.0-16.5); Lymphocyte # 0.99 X10^3/ul (4.0); Lymphocyte % 17.5 % (19-41); Mean Corp Hgb Conc 32.3 g/dL (32-36); Mean Corpuscular Hgb 28.4 pg (27.0-32.0); Mean Corpuscular Volume 88.1 fL (80-94); Mean Platelet Vol. 9.5 fl (6.2-12.0); Monocyte# 0.75 X10^3/uL; Monocyte% 13.2 % (0-10); NRBC Flagged by Analyzer 0 % (0-5); Neutrophil % 63.5 % (47-70); Platelet Count 354 K/mm3 (150-450); RBC Distribution Width CV 13.4 % (11.6-14.6); RBC Distribution Width SD 43.8 fl (35.1-43.9); Red Blood Count 3.94 M/mm3 (4.6-6.2); White Blood Count 5.7 K/mm3 (4.4-11.0)
[2019-11-17 06:23] LABS: ALB/GLOB Ratio 0.7 RATIO (0.9-2.4); AST(SGOT) 28 U/L (15-37); Alanine Aminotransfer ALT/SGPT 23 U/L (16-61); Albumin, Serum 2.6 g/dL (3.2-5.0); Alkaline Phosphatase 90 U/L (45-117); Anion Gap 6 (5-15); BUN 18 mg/dL (7-18); BUN/Creat Ratio 23.7 RATIO (10-20); Calcium,Total 7.8 mg/dL (8.5-10.1); Chloride 110 mmol/L (98-107); Creatinine, Serum 0.76 mg/dL (0.70-1.30); EST Glomerular Filtration Rate 107 mL/min (>60); Est Glom Filt Rate - Afr Amer 129 mL/min (>60); Estimated Creatinine Clearance 58.58 ml/min; Globulin 3.7 g/dL (2.2-4.2); Glucose 99 mg/dL (74-106); Potassium 3.8 mmol/L (3.5-5.1); Protein, Total 6.3 g/dL (6.4-8.2); Sodium Level 142 mmol/L (136-145)
[2019-11-17] MEDS: Enoxaparin 40 MG/0.4 ML Syringe SC (09:02)
[2019-11-17] MEDS: Aspirin 81 MG TAB.CHEW PO (09:02)
[2019-11-17] MEDS: Magnesium Chloride 64 MG Delay Rel.Tablet 128 MG PO ×2 (09:03→21:40)
--- NOTE | 2019-11-17 11:23 | PN_ITS ---
Patient Problems: Active and Suspected Problems (Last Reviewed 09/21/19 @ 10:48 by Jayne Li) Pneumonia (Acute) Suspected COVID-19 virus infection (Suspected) Encephalopathy (Acute) Hypoxia (Acute) Subjective: Patient seen and examined. He was admitted with a complaint of weakness, malaise, cough and shortness of breath and associated rhinorrhea. COVID test done was negative. Chest x-ray done showed ill-defined subpleural groundglass opacities more prominent at the lung bases concerning for atypical pneumonia or viral pneumonia. Respiratory panel was positive for rhino virus. Patient seen and examined this morning. He was transferred out of the ICU this morning. He states he feels much better. He feels his shortness of breath and cough have improved. However he still feels a bit weak. He denies any fever, chills, palpitations, dizziness, nausea vomiting. Review of systems otherwise negative. He has remained hemodynamically stable. Vitals/I&O's: Vital Signs Temp Pulse Resp BP Pulse Ox 97.8 F 140 H 18 130/66 H 92 11/17/19 09:00 11/17/19 09:52 11/17/19 09:00 11/17/19 09:00 11/17/19 09:00 Oxygen Flow Rate (L/min) 92 Oxygen Delivery Method Room Air Weight: 140 lb 14.006 oz Body Mass Index (BMI) 21.7 Finger Stick Blood Glucose 159 Intake and Output for Last 24 Hours 11/15/19 11/16/19 11/17/19 23:59 23:59 23:59 Intake Total 805 / 805 1135 / 1135 Balance 805 / 805 1135 / 1135 General: Alert, Oriented x3, Cooperative, No apparent distress HEENT: Atraumatic, PERRLA, EOMI, Normocephalic, - - erythema of conjuctiva of right eye- no discharge or pain Oral: Dry Mucosa Neck: Supple, No JVD, Negative Carotid Bruits Lungs: Clear to auscultation, Normal air movement, No rhonchi, No wheeze, No rales Cardiovascular: Regular rate, Regular Rhythm, Normal S1, Normal S2, No murmurs Abdomen: Bowel Sounds Present, Soft, Non Tender, Non-Distended, No Hepato- splenomegaly Extremities: No clubbing, No cyanosis, No edema, Capillary Refill Less than 3 Seconds Skin: No rashes, No breakdown Musculoskeletal: No Tenderness to Palpation of Joints or Extremities Lymphatic: No Cervical, Supraclavicular, or Inguinal Adenopathy Neurological: Cranial nerves II-XII grossly intact, Neuro grossly intact, Motor Exam 5/5 strength throughout Psych/Mental Status: Normal Affect, Appropriate, Alert and oriented to time, place, person, mood and affect Microbiology Past 72 Hours 11/17/19 00:03 Mucosa - Nasopharyngeal Respiratory Panel (PCR) - Final Rhinovirus 11/16/19 00:00 Urine, Clean Catch Streptococcus pneumoniae Antigen (M - Final 11/16/19 00:00 Urine, Clean Catch Legionella Antigen - Final Laboratory Results 11/16/19 15:20: WBC 6.3, RBC 4.21 L, Hgb 12.0 L, Hct 36.8 L, MCV 87.4, MCH 28.5, MCHC 32.6, RDW Std Deviation 42.8, RDW Coeff of Abad 13.4, Plt Count 415, MPV 9.5, Immature Gran % (Auto) 0.800, Neut % (Auto) 64.6, Lymph % (Auto) 16.2 L, [place] % (Auto) 15.7 H, Eos % (Auto) 2.2, Baso % (Auto) 0.5, Absolute Neuts (auto) 4.0, Absolute Lymphs (auto) 1.01, Nucleated RBC % 0 11/16/19 15:20: PT 13.0, INR 1.0, APTT 26.5 11/16/19 15:20: Sodium 137, Potassium 3.1 L, Chloride 102, Carbon Dioxide 29.0, Anion Gap 6, BUN 20 H, Creatinine 0.86, Estim Creat Clear Calc 53.29, Est GFR (MDRD) Af Amer 111, Est GFR (MDRD) Non-Af 92, BUN/Creatinine Ratio 23.1 H, Glucose 114 H, Calcium 8.5, Total Bilirubin 0.20, AST 29, ALT 26, Alkaline Phosphatase 106, Troponin I < 0.015, Total Protein 7.1, Albumin 3.0 L, Globulin 4.1, Albumin/Globulin Ratio 0.7 L 11/16/19 15:20: Lactic Acid 1.1 11/16/19 15:20: Magnesium 1.8 11/16/19 15:20: Ferritin 296, Lactate Dehydrogenase 226, C-React Prot Ext Range 58.80 H 11/16/19 16:22: Urine Color Yellow, Urine Clarity Sl. Cloudy, Urine pH 6.0, Ur Specific [place] 1.025, Urine Protein 100 H, Urine Glucose (UA) Normal, Urine Ketones 5 H, Urine Occult Blood 10 H, Urine Nitrite Negative, Urine Bilirubin Negative, Urine Urobilinogen Normal, Ur Leukocyte Esterase 25 H, Urine RBC 0-5 SEEN, Urine WBC 0-5 SEEN, Ur Squamous Epith Cells 0 SEEN, Urine Bacteria 0 SEEN, Urine Mucus 0 SEEN 11/16/19 16:56: COVID-19 (MARIELLE) Not Detected 11/16/19 21:19: POC Glucose 159 H 11/16/19 21:42: D-Dimer Quant (PE/DVT) 0.62 H* 11/16/19 22:00: Lactic Acid 1.0 11/16/19 22:57: Specimen Type ART, Sample Site R Radial, pH 7.42, Bicarbonate Actual 26.9 H, Total CO2 28, Base Excess 2, O2 Saturation 97, ABG pCO2 41.2, ABG pO2 85, Sha Test Positive, O2 Delivery Device Cannula, Liter Flow 2.0 11/17/19 00:10: Procalcitonin 0.08 11/17/19 00:10: Troponin I < 0.015 11/17/19 03:05: Troponin I < 0.015 11/17/19 06:00: WBC 5.7, RBC 3.94 L, Hgb 11.2 L, Hct 34.7 L, MCV 88.1, MCH 28.4, MCHC 32.3, RDW Std Deviation 43.8, RDW Coeff of Abad 13.4, Plt Count 354, MPV 9.5, Immature Gran % (Auto) 0.700, Neut % (Auto) 63.5, Lymph % (Auto) 17.5 L, [place] % (Auto) 13.2 H, Eos % (Auto) 4.2, Baso % (Auto) 0.9, Absolute Neuts (auto) 3.6, Absolute Lymphs (auto) 0.99, Nucleated RBC % 0 11/17/19 06:00: Sodium 142, Potassium 3.8, Chloride 110 H, Carbon Dioxide 26.0, Anion Gap 6, BUN 18, Creatinine 0.76, Estim Creat Clear Calc 58.58, Est GFR (MDRD) Af Amer 129, Est GFR (MDRD) Non-Af 107, BUN/Creatinine Ratio 23.7 H, Glucose 99, Calcium 7.8 L, Total Bilirubin 0.20, AST 28, ALT 23, Alkaline Phosphatase 90, Total Protein 6.3 L, Albumin 2.6 L, Globulin 3.7, Albumin/Globulin Ratio 0.7 L 11/17/19 06:00: Troponin I < 0.[address] 11/16/19 15:03 IMPRESSION: 1. Chronic involutional changes without evidence of acute intracranial or calvarial abnormality. 2. Sinusitis. Electronically Signed: Chris Servin DO at 16:44 EDT Tel [phone], Service support , Chest X-Ray 11/16/19 15:38 IMPRESSION: Ill-defined subpleural groundglass opacities are seen more prominent in the lung bases , may represent atypical pneumonia or viral pneumonia (COVID-19 ?). Electronically Signed: Hai Cruz at 16:26 EDT Tel , Service support , Chest CTA 11/16/19 22:21 IMPRESSION: 1. No evidence of pulmonary embolus. 2. No aortic dissection or aneurysm. 3. Minimal ground glass infiltrates most marked in the upper lobes. This appears unchanged. 4. Mild cardiomegaly. 5. Degenerative changes of the thoracic spine. Electronically Signed: Chris Servin DO at 23:47 EDT Tel [phone], Service support , Current Medications Acetaminophen (Tylenol) 650 mg PO Q6H PRN PRN PRN Reason: Pain Score 1-10/Temp > 100.7 F Al Hydroxide/Mg Hydroxide (Mylanta Ii) 30 ml PO Q6H PRN PRN PRN Reason: Gastric Burning Albuterol Sulfate (Ventolin Aerosols) 2.5 mg INHALATION Q2H PRN PRN PRN Reason: Dyspnea, wheezing Aspirin (Aspirin, Baby) 81 mg PO DAILY@0800 [facility] Last Admin: 11/17/19 09:02 Dose: 81 mg Documented by: Enoxaparin Sodium (Lovenox) 40 mg SC DAILY [facility] Last Admin: 11/17/19 09:02 Dose: 40 mg Documented by: Famotidine (Pepcid) 20 mg PO BID [facility] Last Admin: 11/17/19 09:03 Dose: 20 mg Documented by: Guaifenesin (Mucinex) 1,200 mg PO BID [facility] Last Admin: 11/17/19 09:03 Dose: 1,200 mg Documented by: Sodium Chloride () 1,000 mls @ 100 mls/hr IV .Q10H [facility] Last Admin: 11/17/19 09:01 Dose: 100 mls/hr Documented by: Ceftriaxone Sodium 2 gm/ (Sodium Chloride) 50 mls @ 100 mls/hr IV Q24H [facility] Azithromycin 500 mg/ Dextrose 255 mls @ 250 mls/hr IV Q24H [facility] Sodium Chloride () 250 mls @ 15 mls/hr IV .[id number] PRN PRN Reason: Saline Flush Sodium Chloride () 250 mls @ 15 mls/hr IV .[id number] PRN PRN Reason: Additional IVPB Infusion Ipratropium [place] (Atrovent Nasal [place] (G)) 2 spray NASAL TID [facility] Last Admin: 11/17/19 05:52 Dose: 2 sprays Documented by: Magnesium Chloride (Mag64) 128 mg PO BID [facility] Last Admin: 11/17/19 09:03 Dose: 128 mg Documented by: Magnesium Hydroxide (Milk Of Magnesia) 30 ml PO DAILY PRN PRN PRN Reason: Constipation Meloxicam (Mobic) 15 mg PO DAILY PRN PRN PRN Reason: Pain Score 1-10 Non-Formulary Medication (Apremilast) 30 mg PO BID [facility] Ondansetron HCl (Zofran) 4 mg IV Q8H PRN PRN PRN Reason: NAUSEA/VOMITING Prochlorperazine Edisylate (Compazine Iv) 5 mg IV Q4H PRN PRN PRN Reason: Breakthrough Nausea/Vomiting Psyllium Hydrophilic Mucilloid (Metamucil) 1 packet PO DAILY PRN PRN PRN Reason: Constipation Senna/Docusate Sodium (Senokot-S, [place]-Colace) 2 tablet PO BID PRN PRN PRN Reason: Constipation Sodium Chloride () 10 - 40 ml IV UD PRN PRN Reason: SALINE FLUSH Last Admin: 11/17/19 05:52 Dose: 30 ml Documented by: Throat Lozenges (Cepacol Sore Throat Lozenge) 1 lozenge MUCOUS MEM Q2H PRN PRN PRN Reason: SORE THROAT STROKE Vital Signs/Narrative: Vital Signs Temp Pulse Resp BP Pulse Ox 11/17/19 09:52 140 H 11/17/19 09:00 97.8 F 92 18 130/66 H 92 Medical Necessity - Tobacco Use Smoking Status: Never smoker Tobacco Use: Non-smoker Assessment/Plan All Active Problems (Last Reviewed 09/21/19 @ 10:48 by Jayne Li) Pneumonia (Acute) Encephalopathy (Acute) Hypoxia (Acute) Shortness of breath (Acute) # Acute viral respiratory infection due to Rhinovirus * COVID test done was negative * respiratory panel positive for Rhinovirus * on breathing treatment with bronchodilators * titrate oxyten to maintain sats at >90% * coronavirus precautions discontinued * # History of interstitial lung disease/bronchiectasis * on 2L of oxygen at home. * stable. * pulmonology on board * #history of CVA: stable. PT/OT on baod. Not on aspirin or statin or BP meds. Unsure why. # BPH: stable. # Arthritis; in apremilast. tylenol prn DVT prophylaxis: lovenox * Inpatient E&M: 51156 Subs Hosp L2
--- NOTE | 2019-11-17 14:44 | NURSING ---
Addendum entered and electronically signed by Zelda Costello 11/17/19 15:30: S/w patient and states that they have come up with DC plan to have patient return home with HH PT ([facility]) Called [facility] #[phone] and left a VM to return to this public relations writer, also provided number to tomorrow CASSIUS Atkinsonfer to f/u for anticipated DC. CASSIUS Franks Original Note: RN CM Assessment Introduced role of RN CM to patient and his Jodi at bedside. Patient is alert, oriented and able to participate in RN CM Assessment. Care providers, pharmacy, and demographics verified. Assessment done after bedside rounding completed with multidisciplinary team. Admit Dx: PNA, Possible COVID, Hypoxia Re-Admit: No Barriers/Issues: Patient with limited ambulatory baseline, uses walker and can go around kitchen table for distance. Per increased weakness from baseline as now patient is requiring assistance to stand up. States she normally assists patient with all ADLs. She will have to s/w her nephew Arun and his Aissatou whom they live with to decide DC plan of SNF vs Home with HH PT. PCP: Wally Epstein Specialists: Erasto- Dr Mukherjee Preferred Pharmacy: [facility] (if in [place]) otherwise [facility] Insurance: [employer] Benefit: No LNOK: Jodi Delgado LW/HPOA: States has advanced directives completed and Nephew Arun Panchal and his Aissatou Panchal are HPOA, thought they were on file with [facility] and if brought in, will have a copy scanned on file. 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 Will notify RNCM of decision, RNCM to f/u on DC goal/plan. Aware RNCM remains available for any emerging needs. DC PLAN: Patient currently on room air. Possible SNF vs Home with HH PT ([facility]-private pay) CASSIUS Overton
--- NOTE | 2019-11-17 15:00 | NURSING ---
Read and reviewed SN documentation
[2019-11-18 02:52] VITALS: PULSE 68
[2019-11-18 03:30] VITALS: BP 136/82; PULSE 71; RESP 18; TEMP 37.2; O2SAT 97
[2019-11-18] MEDS: 0.9% Normal Saline 1,000 ML 100 ML IV (05:33)
[2019-11-18 06:35] LABS: Absolute Lymphocyte Count 1.08 X10^3/uL (0.83-4.51); Absolute Neutrophil Count 3.6 X10^3/uL (2.0-7.7); Basophil# 0.03 X10^3/uL; Basophil% 0.5 % (0-1); Eosinophil# 0.65 X10^3/uL; Eosinophils% 10.6 % (0-5); Hematocrit 35.5 % (40-54); Hemoglobin 11.3 g/dL (13.0-16.5); Lymphocyte # 1.08 X10^3/ul (4.0); Lymphocyte % 17.6 % (19-41); Mean Corp Hgb Conc 31.8 g/dL (32-36); Mean Corpuscular Hgb 28.5 pg (27.0-32.0); Mean Corpuscular Volume 89.4 fL (80-94); Mean Platelet Vol. 9.6 fl (6.2-12.0); Monocyte# 0.66 X10^3/uL; Monocyte% 10.8 % (0-10); NRBC Flagged by Analyzer 0 % (0-5); Neutrophil # 3.64 X10^3/uL (2.7-7.7); Neutrophil % 59.5 % (47-70); Platelet Count 390 K/mm3 (150-450); RBC Distribution Width CV 13.3 % (11.6-14.6); RBC Distribution Width SD 43.9 fl (35.1-43.9); Red Blood Count 3.97 M/mm3 (4.6-6.2); White Blood Count 6.1 K/mm3 (4.4-11.0)
[2019-11-18 07:00] VITALS: PULSE 67
[2019-11-18 07:03] LABS: Anion Gap 4 (5-15); BUN 16 mg/dL (7-18); BUN/Creat Ratio 23.6 RATIO (10-20); Chloride 108 mmol/L (98-107); Creatinine, Serum 0.68 mg/dL (0.70-1.30); EST Glomerular Filtration Rate 122 mL/min (>60); Est Glom Filt Rate - Afr Amer 147 mL/min (>60); Estimated Creatinine Clearance 60.59 ml/min; Glucose 90 mg/dL (74-106); Potassium 3.5 mmol/L (3.5-5.1); Sodium Level 138 mmol/L (136-145)
[2019-11-18 07:21] VITALS: O2SAT 95
[2019-11-18 08:18] VITALS: BP 155/77; PULSE 74; RESP 16; TEMP 36.1; O2SAT 97
[2019-11-18] MEDS: Ipratropium Bromide 0.06% NASAL SPRAY 2 SPRAY NASAL (08:21)
[2019-11-18] MEDS: Aspirin 81 MG TAB.CHEW PO (08:27)
[2019-11-18] MEDS: Famotidine 20 MG Tablet PO (08:27)
[2019-11-18] MEDS: guaiFENesin 1,200 MG Tablet 1200 MG PO (08:27)
[2019-11-18] MEDS: Magnesium Chloride 64 MG Delay Rel.Tablet 128 MG PO (08:31)
--- NOTE | 2019-11-18 08:36 | PCM.PN.PUL ---
Subjective: The patient was seen and examined at the bedside this morning. Events from the last 24 hours have been reviewed. The patient is currently afebrile, hemodynamically stable and maintaining appropriate oxygen saturations on room air. Objective: The patient's most recent lab work, culture data and imaging studies have all been personally reviewed. CTA chest showed no evidence for pulmonary embolism. Ill-defined groundglass and cystic changes were noted bilaterally, most pronounced in the upper lobes. This appears similar to prior chest imaging from 2019. Sputum, blood and urine cultures are pending. Respiratory viral panel was positive for rhinovirus. - Physical Exam Vitals/I&O's: Vital Signs Temp Pulse Resp BP Pulse Ox 97.0 F L 74 16 155/77 H 97 11/18/19 08:18 11/18/19 08:18 11/18/19 08:18 11/18/19 08:18 11/18/19 08:18 Oxygen Flow Rate (L/min) 92 Oxygen Delivery Method Room Air Weight: 147 lb 7.828 oz Body Mass Index (BMI) 21.7 Finger Stick Blood Glucose 159 Intake and Output for Last 24 Hours 11/16/19 11/17/19 11/18/19 23:59 23:59 23:59 Intake Total 805 / 805 3506.67 / 3506.67 733.33 / 733.33 Balance 805 / 805 3506.67 / 3506.67 733.33 / 733.33 General: Alert, No apparent distress HEENT: Atraumatic, Normocephalic Oral: No Gingival or Mucosal Lesions/ Ulcerations Neck: Supple, No Nodes, Trachea Midline Lungs: Normal air movement, No rhonchi, No wheeze, No rales Cardiovascular: Regular rate, Regular Rhythm Abdomen: Bowel Sounds Present, Soft, Non Tender Extremities: No clubbing, No cyanosis, No edema Skin: No breakdown Musculoskeletal: No Tenderness to Palpation of Joints or Extremities Lymphatic: No Cervical, Supraclavicular, or Inguinal Adenopathy Neurological: Cranial nerves II-XII grossly intact, Neuro grossly intact Psych/Mental Status: Normal Affect, Appropriate Labs (Last 48 Hours) 11/16/19 11/16/19 11/16/19 15:20 15:20 15:20 WBC 6.3 RBC 4.21 L Hgb 12.0 L Hct 36.8 L MCV 87.4 MCH 28.5 MCHC 32.6 RDW Std Deviation 42.8 RDW Coeff of Abad 13.4 Plt Count 415 MPV 9.5 Immature Gran % (Auto) 0.800 Neut % (Auto) 64.6 Lymph % (Auto) 16.2 L [place] % (Auto) 15.7 H Eos % (Auto) 2.2 Baso % (Auto) 0.5 Absolute Neuts (auto) 4.0 Absolute Lymphs (auto) 1.01 Nucleated RBC % 0 PT 13.0 INR 1.0 APTT 26.5 D-Dimer Quant (PE/DVT) Specimen Type Sample Site pH Bicarbonate Actual Total CO2 Base Excess O2 Saturation ABG pCO2 ABG pO2 Sha Test O2 Delivery Device Liter Flow Sodium 137 Potassium 3.1 L Chloride 102 Carbon Dioxide 29.0 Anion Gap 6 BUN 20 H Creatinine 0.86 Estim Creat Clear Calc 53.29 Est GFR (MDRD) Af Amer 111 Est GFR (MDRD) Non-Af 92 BUN/Creatinine Ratio 23.1 H Glucose 114 H Lactic Acid Calcium 8.5 Magnesium Ferritin Total Bilirubin 0.20 AST 29 ALT 26 Alkaline Phosphatase 106 Lactate Dehydrogenase Troponin I < 0.015 C-React Prot Ext Range Total Protein 7.1 Albumin 3.0 L Globulin 4.1 Albumin/Globulin Ratio 0.7 L Procalcitonin Urine Color Urine Clarity Urine pH Ur Specific [place] Urine Protein Urine Glucose (UA) Urine Ketones Urine Occult Blood Urine Nitrite Urine Bilirubin Urine Urobilinogen Ur Leukocyte Esterase Urine RBC Urine WBC Ur Squamous Epith Cells Urine Bacteria Urine Mucus COVID-19 (MARIELLE) POC Glucose 11/16/19 11/16/19 11/16/19 15:20 15:20 15:20 WBC RBC Hgb Hct MCV MCH MCHC RDW Std Deviation RDW Coeff of Abad Plt Count MPV Immature Gran % (Auto) Neut % (Auto) Lymph % (Auto) [place] % (Auto) Eos % (Auto) Baso % (Auto) Absolute Neuts (auto) Absolute Lymphs (auto) Nucleated RBC % PT INR APTT D-Dimer Quant (PE/DVT) Specimen Type Sample Site pH Bicarbonate Actual Total CO2 Base Excess O2 Saturation ABG pCO2 ABG pO2 Sha Test O2 Delivery Device Liter Flow Sodium Potassium Chloride Carbon Dioxide Anion Gap BUN Creatinine Estim Creat Clear Calc Est GFR (MDRD) Af Amer Est GFR (MDRD) Non-Af BUN/Creatinine Ratio Glucose Lactic Acid 1.1 Calcium Magnesium 1.8 Ferritin 296 Total Bilirubin AST ALT Alkaline Phosphatase Lactate Dehydrogenase 226 Troponin I C-React Prot Ext Range 58.80 H Total Protein Albumin Globulin Albumin/Globulin Ratio Procalcitonin Urine Color Urine Clarity Urine pH Ur Specific [place] Urine Protein Urine Glucose (UA) Urine Ketones Urine Occult Blood Urine Nitrite Urine Bilirubin Urine Urobilinogen Ur Leukocyte Esterase Urine RBC Urine WBC Ur Squamous Epith Cells Urine Bacteria Urine Mucus COVID-19 (MARIELLE) POC Glucose 11/16/19 11/16/19 11/16/19 16:22 16:56 21:19 WBC RBC Hgb Hct MCV MCH MCHC RDW Std Deviation RDW Coeff of Abad Plt Count MPV Immature Gran % (Auto) Neut % (Auto) Lymph % (Auto) [place] % (Auto) Eos % (Auto) Baso % (Auto) Absolute Neuts (auto) Absolute Lymphs (auto) Nucleated RBC % PT INR APTT D-Dimer Quant (PE/DVT) Specimen Type Sample Site pH Bicarbonate Actual Total CO2 Base Excess O2 Saturation ABG pCO2 ABG pO2 Sha Test O2 Delivery Device Liter Flow Sodium Potassium Chloride Carbon Dioxide Anion Gap BUN Creatinine Estim Creat Clear Calc Est GFR (MDRD) Af Amer Est GFR (MDRD) Non-Af BUN/Creatinine Ratio Glucose Lactic Acid Calcium Magnesium Ferritin Total Bilirubin AST ALT Alkaline Phosphatase Lactate Dehydrogenase Troponin I C-React Prot Ext Range Total Protein Albumin Globulin Albumin/Globulin Ratio Procalcitonin Urine Color Yellow Urine Clarity Sl. Cloudy Urine pH 6.0 Ur Specific [place] 1.025 Urine Protein 100 H Urine Glucose (UA) Normal Urine Ketones 5 H Urine Occult Blood 10 H Urine Nitrite Negative Urine Bilirubin Negative Urine Urobilinogen Normal Ur Leukocyte Esterase 25 H Urine RBC 0-5 SEEN Urine WBC 0-5 SEEN Ur Squamous Epith Cells 0 SEEN Urine Bacteria 0 SEEN Urine Mucus 0 SEEN COVID-19 (MARIELLE) Not Detected POC Glucose 159 H 11/16/19 11/16/19 11/16/19 21:42 22:00 22:57 WBC RBC Hgb Hct MCV MCH MCHC RDW Std Deviation RDW Coeff of Abad Plt Count MPV Immature Gran % (Auto) Neut % (Auto) Lymph % (Auto) [place] % (Auto) Eos % (Auto) Baso % (Auto) Absolute Neuts (auto) Absolute Lymphs (auto) Nucleated RBC % PT INR APTT D-Dimer Quant (PE/DVT) 0.62 H* Specimen Type ART Sample Site R Radial pH 7.42 Bicarbonate Actual 26.9 H Total CO2 28 Base Excess 2 O2 Saturation 97 ABG pCO2 41.2 ABG pO2 85 Sha Test Positive O2 Delivery Device Cannula Liter Flow 2.0 Sodium Potassium Chloride Carbon Dioxide Anion Gap BUN Creatinine Estim Creat Clear Calc Est GFR (MDRD) Af Amer Est GFR (MDRD) Non-Af BUN/Creatinine Ratio Glucose Lactic Acid 1.0 Calcium Magnesium Ferritin Total Bilirubin AST ALT Alkaline Phosphatase Lactate Dehydrogenase Troponin I C-React Prot Ext Range Total Protein Albumin Globulin Albumin/Globulin Ratio Procalcitonin Urine Color Urine Clarity Urine pH Ur Specific [place] Urine Protein Urine Glucose (UA) Urine Ketones Urine Occult Blood Urine Nitrite Urine Bilirubin Urine Urobilinogen Ur Leukocyte Esterase Urine RBC Urine WBC Ur Squamous Epith Cells Urine Bacteria Urine Mucus COVID-19 (MARIELLE) POC Glucose 11/17/19 11/17/19 11/17/19 00:10 00:10 03:05 WBC RBC Hgb Hct MCV MCH MCHC RDW Std Deviation RDW Coeff of Abad Plt Count MPV Immature Gran % (Auto) Neut % (Auto) Lymph % (Auto) [place] % (Auto) Eos % (Auto) Baso % (Auto) Absolute Neuts (auto) Absolute Lymphs (auto) Nucleated RBC % PT INR APTT D-Dimer Quant (PE/DVT) Specimen Type Sample Site pH Bicarbonate Actual Total CO2 Base Excess O2 Saturation ABG pCO2 ABG pO2 Sha Test O2 Delivery Device Liter Flow Sodium Potassium Chloride Carbon Dioxide Anion Gap BUN Creatinine Estim Creat Clear Calc Est GFR (MDRD) Af Amer Est GFR (MDRD) Non-Af BUN/Creatinine Ratio Glucose Lactic Acid Calcium Magnesium Ferritin Total Bilirubin AST ALT Alkaline Phosphatase Lactate Dehydrogenase Troponin I < 0.015 < 0.015 C-React Prot Ext Range Total Protein Albumin Globulin Albumin/Globulin Ratio Procalcitonin 0.08 Urine Color Urine Clarity Urine pH Ur Specific [place] Urine Protein Urine Glucose (UA) Urine Ketones Urine Occult Blood Urine Nitrite Urine Bilirubin Urine Urobilinogen Ur Leukocyte Esterase Urine RBC Urine WBC Ur Squamous Epith Cells Urine Bacteria Urine Mucus COVID-19 (MARIELLE) POC Glucose 11/17/19 11/17/19 11/17/19 06:00 06:00 06:00 WBC 5.7 RBC 3.94 L Hgb 11.2 L Hct 34.7 L MCV 88.1 MCH 28.4 MCHC 32.3 RDW Std Deviation 43.8 RDW Coeff of Abad 13.4 Plt Count 354 MPV 9.5 Immature Gran % (Auto) 0.700 Neut % (Auto) 63.5 Lymph % (Auto) 17.5 L [place] % (Auto) 13.2 H Eos % (Auto) 4.2 Baso % (Auto) 0.9 Absolute Neuts (auto) 3.6 Absolute Lymphs (auto) 0.99 Nucleated RBC % 0 PT INR APTT D-Dimer Quant (PE/DVT) Specimen Type Sample Site pH Bicarbonate Actual Total CO2 Base Excess O2 Saturation ABG pCO2 ABG pO2 Sha Test O2 Delivery Device Liter Flow Sodium 142 Potassium 3.8 Chloride 110 H Carbon Dioxide 26.0 Anion Gap 6 BUN 18 Creatinine 0.76 Estim Creat Clear Calc 58.58 Est GFR (MDRD) Af Amer 129 Est GFR (MDRD) Non-Af 107 BUN/Creatinine Ratio 23.7 H Glucose 99 Lactic Acid Calcium 7.8 L Magnesium Ferritin Total Bilirubin 0.20 AST 28 ALT 23 Alkaline Phosphatase 90 Lactate Dehydrogenase Troponin I < 0.015 C-React Prot Ext Range Total Protein 6.3 L Albumin 2.6 L Globulin 3.7 Albumin/Globulin Ratio 0.7 L Procalcitonin Urine Color Urine Clarity Urine pH Ur Specific [place] Urine Protein Urine Glucose (UA) Urine Ketones Urine Occult Blood Urine Nitrite Urine Bilirubin Urine Urobilinogen Ur Leukocyte Esterase Urine RBC Urine WBC Ur Squamous Epith Cells Urine Bacteria Urine Mucus COVID-19 (MARIELLE) POC Glucose 11/18/19 11/18/19 06:02 06:02 WBC 6.1 RBC 3.97 L Hgb 11.3 L Hct 35.5 L MCV 89.4 MCH 28.5 MCHC 31.8 L RDW Std Deviation 43.9 RDW Coeff of Abad 13.3 Plt Count 390 MPV 9.6 Immature Gran % (Auto) 1.000 H Neut % (Auto) 59.5 Lymph % (Auto) 17.6 L [place] % (Auto) 10.8 H Eos % (Auto) 10.6 H Baso % (Auto) 0.5 Absolute Neuts (auto) 3.6 Absolute Lymphs (auto) 1.08 Nucleated RBC % 0 PT INR APTT D-Dimer Quant (PE/DVT) Specimen Type Sample Site pH Bicarbonate Actual Total CO2 Base Excess O2 Saturation ABG pCO2 ABG pO2 Sha Test O2 Delivery Device Liter Flow Sodium 138 Potassium 3.5 Chloride 108 H Carbon Dioxide 26.0 Anion Gap 4 L BUN 16 Creatinine 0.68 L Estim Creat Clear Calc 60.59 Est GFR (MDRD) Af Amer 147 Est GFR (MDRD) Non-Af 122 BUN/Creatinine Ratio 23.6 H Glucose 90 Lactic Acid Calcium 8.0 L Magnesium Ferritin Total Bilirubin AST ALT Alkaline Phosphatase Lactate Dehydrogenase Troponin I C-React Prot Ext Range Total Protein Albumin Globulin Albumin/Globulin Ratio Procalcitonin Urine Color Urine Clarity Urine pH Ur Specific [place] Urine Protein Urine Glucose (UA) Urine Ketones Urine Occult Blood Urine Nitrite Urine Bilirubin Urine Urobilinogen Ur Leukocyte Esterase Urine RBC Urine WBC Ur Squamous Epith Cells Urine Bacteria Urine Mucus COVID-19 (MARIELLE) POC Glucose Microbiology 11/17/19 00:03 Mucosa - Nasopharyngeal Respiratory Panel (PCR) - Final Rhinovirus 11/16/19 00:00 Urine, Clean Catch Streptococcus pneumoniae Antigen (M - Final 11/16/19 00:00 Urine, Clean Catch Legionella Antigen - Final Clinical Impression(s) from Imaging Studies Brain CT 11/16/19 15:03 IMPRESSION: 1. Chronic involutional changes without evidence of acute intracranial or calvarial abnormality. 2. Sinusitis. Electronically Signed: Chris Servin DO at 16:44 EDT Tel [phone], Service support , Chest X-Ray 11/16/19 15:38 IMPRESSION: Ill-defined subpleural groundglass opacities are seen more prominent in the lung bases , may represent atypical pneumonia or viral pneumonia (COVID-19 ?). Electronically Signed: Hai Cruz at 16:26 EDT Tel , Service support , Chest CTA 11/16/19 22:21 IMPRESSION: 1. No evidence of pulmonary embolus. 2. No aortic dissection or aneurysm. 3. Minimal ground glass infiltrates most marked in the upper lobes. This appears unchanged. 4. Mild cardiomegaly. 5. Degenerative changes of the thoracic spine. Electronically Signed: Chris Servin DO at 23:47 EDT Tel [phone], Service support , Current Medications Acetaminophen (Tylenol) 650 mg PO Q6H PRN PRN PRN Reason: Pain Score 1-10/Temp > 100.7 F Al Hydroxide/Mg Hydroxide (Mylanta Ii) 30 ml PO Q6H PRN PRN PRN Reason: Gastric Burning Albuterol Sulfate (Ventolin Aerosols) 2.5 mg INHALATION Q2H PRN PRN PRN Reason: Dyspnea, wheezing Aspirin (Aspirin, Baby) 81 mg PO DAILY@0800 [facility] Last Admin: 11/17/19 09:02 Dose: 81 mg Documented by: Enoxaparin Sodium (Lovenox) 40 mg SC DAILY [facility] Last Admin: 11/17/19 09:02 Dose: 40 mg Documented by: Famotidine (Pepcid) 20 mg PO BID [facility] Last Admin: 11/17/19 21:40 Dose: 20 mg Documented by: Guaifenesin (Mucinex) 1,200 mg PO BID [facility] Last Admin: 11/17/19 21:40 Dose: Not Given Documented by: Sodium Chloride () 1,000 mls @ 100 mls/hr IV .Q10H [facility] Last Admin: 11/18/19 05:33 Dose: 100 mls/hr Documented by: Ceftriaxone Sodium 2 gm/ (Sodium Chloride) 50 mls @ 100 mls/hr IV Q24H [facility] Last Infusion: 11/17/19 22:12 Dose: Infused Documented by: Azithromycin 500 mg/ Dextrose 255 mls @ 250 mls/hr IV Q24H [facility] Last Infusion: 11/17/19 23:43 Dose: Infused Documented by: Sodium Chloride () 250 mls @ 15 mls/hr IV .[id number] PRN PRN Reason: Saline Flush Sodium Chloride () 250 mls @ 15 mls/hr IV .[id number] PRN PRN Reason: Additional IVPB Infusion Ipratropium [place] (Atrovent Nasal [place] (G)) 2 spray NASAL TID [facility] Last Admin: 11/18/19 05:35 Dose: Not Given Documented by: Magnesium Chloride (Mag64) 128 mg PO BID [facility] Last Admin: 11/17/19 21:40 Dose: 128 mg Documented by: Magnesium Hydroxide (Milk Of Magnesia) 30 ml PO DAILY PRN PRN PRN Reason: Constipation Meloxicam (Mobic) 15 mg PO DAILY PRN PRN PRN Reason: Pain Score 1-10 Ondansetron HCl (Zofran) 4 mg IV Q8H PRN PRN PRN Reason: NAUSEA/VOMITING Prochlorperazine Edisylate (Compazine Iv) 5 mg IV Q4H PRN PRN PRN Reason: Breakthrough Nausea/Vomiting Psyllium Hydrophilic Mucilloid (Metamucil) 1 packet PO DAILY PRN PRN PRN Reason: Constipation Senna/Docusate Sodium (Senokot-S, [place]-Colace) 2 tablet PO BID PRN PRN PRN Reason: Constipation Sodium Chloride () 10 - 40 ml IV UD PRN PRN Reason: SALINE FLUSH Last Admin: 11/17/19 05:52 Dose: 30 ml Documented by: Throat Lozenges (Cepacol Sore Throat Lozenge) 1 lozenge MUCOUS MEM Q2H PRN PRN PRN Reason: SORE THROAT Medical Necessity - Tobacco Use Smoking Status: Never smoker Tobacco Use: Non-smoker Assessment/Plan All Active Problems (Last Reviewed 09/21/19 @ 10:48 by Jayne Li) Pneumonia (Acute) Encephalopathy (Acute) Hypoxia (Acute) Shortness of breath (Acute) RECOMMENDATIONS: 1. Wean supplemental oxygen as tolerated. (Patient requires 2 L/min at baseline) 2. Encourage incentive spirometer use and mobilize patient as tolerated. 3. Bronchopulmonary hygiene, given history of bronchiectasis. 4. Supportive care for viral upper respiratory infection. 5. Follow-up in the pulmonary medicine clinic within 2 weeks of discharge from the hospital. IMPRESSIONS: 1. Shortness of breath/cough/generalized malaise The patient presented with a number of symptoms consistent with a viral etiology. Subsequent work-up was negative for coronavirus. CT chest did reveal groundglass changes, although these appear chronic in nature and likely related to the patient's pulmonary fibrosis. The patient has been afebrile and hemodynamically stable, without elevated white blood cell count throughout his hospital course. Respiratory viral panel was positive for rhinovirus. 2. Personal history of interstitial lung disease/bronchiectasis The patient does have a baseline oxygen requirement of 2 L/min of supplemental oxygen with exertion, with questionable outpatient compliance. This note was generated with [employer] dictation software. It may contain incorrect words, spelling, and punctuation that were not noted in checking the note before signing. Inpatient E&M: 89738 Subs Hosp L2
--- NOTE | 2019-11-18 10:48 | PCM.DC ---
- Discharge Diagnoses Current Active Problems: Current Active and Chronic Problems (Last Reviewed 09/21/19 @ 10:48 by Jayne Li) Pneumonia (Acute) Encephalopathy (Acute) Hypoxia (Acute) Arthritis (Chronic) You will use the following diet at home:: Cardiac Your food should be the consistency of: Regular Your liquids should be the consistency of: Regular/Thin Discharge Activity: Return to Normal Activity Weight Bearing Status: Weight bearing as tolerated Call your doctor if you observe: Fever of 101 or Higher, Shortness of breath, Dizziness, Fainting spells, Swelling in the ankles, Increased palpitations (irregular heartbeat) Instructions: ED VIRAL URI w/ Wheezing Adult Allergies/Adverse Reactions: Allergies albuterol Adverse Reaction (Mild, Verified 11/16/19 14:47) acted funny Medications to take at Discharge magnesium oxide 400 mg PO BID cap 01/26/18 apremilast 30 mg tablet 30 mg PO BID 08/23/18 guaifenesin 1,200 mg tablet, extended release 12 hr 1,200 mg PO BID 09/21/19 meloxicam 15 mg tablet 15 mg PO DAILY PRN 09/21/19 ipratropium bromide 42 mcg (0.06 %) nasal spray 2 spray INTRANASAL TID #15 ml 11/16/19 levoFLOXacin tablet [Levaquin tablet] 750 mg PO DAILY #5 tab 11/18/19 predniSONE tablet 40 mg PO DAILY 5 Days #10 tab 11/18/19 The following prescriptions were given: levoFLOXacin tablet [Levaquin tablet] 750 mg PO DAILY #5 tab Transmission Status: Pending to [facility]/pharmacy #[id number] predniSONE tablet 40 mg PO DAILY 5 Days #10 tab Transmission Status: Received by [facility]/pharmacy #[id number] Primary Care Physician: Wally Epstein MD [Primary Care Provider] - Please follow up with your Primary Care Physician in: 1-2 weeks Test Results: Test results from this visit will be discussed in further detail at your follow-up appointment, if applicable. Please Follow Up With: Eliceo Mukherjee MD When: 1-2 weeks Proposed Discharge Date: 11/18/19
--- NOTE | 2019-11-18 10:57 | PCM.DC.SUM ---
Discharge Date and Diagnosis - Problem List Patient Problems: Active and Suspected Problems (Last Reviewed 09/21/19 @ 10:48 by Jayne Li) Pneumonia (Acute) Suspected COVID-19 virus infection (Suspected) Encephalopathy (Acute) Hypoxia (Acute) Date of Admission: 11/16/19 Date of Discharge: 11/18/19 - Primary Discharge Diagnosis Acute Problems: Active Problems (Last Reviewed 09/21/19 @ 10:48 by Jayne Li) upper respiratory tract infection due to Rhinovirus infection Encephalopathy (Acute) Hypoxia (Acute) Suspected Problems: Suspected Problems (Last Reviewed 09/21/19 @ 10:48 by Jayne Li) Suspected COVID-19 virus infection (Suspected) - Secondary Discharge Diagnosis Chronic Problems: Chronic Problems (Last Reviewed 09/21/19 @ 10:48 by Jayne Li) Arthritis (Chronic) Rheumatoid arthritis (Chronic) Bronchiectasis (Chronic) Pulmonary fibrosis (Chronic) Abnormal CXR (Chronic) Chronic cough (Chronic) CVA (cerebral vascular accident) (Chronic) BPH (benign prostatic hyperplasia) (Chronic) History of cervical fracture (Chronic) Bilateral hearing loss (Chronic) Hospital Course and Treatment Imaging Results: Diagnostic Data Brain CT 11/16/19 15:03 IMPRESSION: 1. Chronic involutional changes without evidence of acute intracranial or calvarial abnormality. 2. Sinusitis. Electronically Signed: Chris Servin DO at 16:44 EDT Tel [phone], Service support , Chest X-Ray 11/16/19 15:38 IMPRESSION: Ill-defined subpleural groundglass opacities are seen more prominent in the lung bases , may represent atypical pneumonia or viral pneumonia (COVID-19 ?). Electronically Signed: Hai Cruz, at 16:26 EDT Tel , Service support , Chest CTA 11/16/19 22:21 IMPRESSION: 1. No evidence of pulmonary embolus. 2. No aortic dissection or aneurysm. 3. Minimal ground glass infiltrates most marked in the upper lobes. This appears unchanged. 4. Mild cardiomegaly. 5. Degenerative changes of the thoracic spine. Electronically Signed: Chris Servin DO at 23:47 EDT Tel [phone], Service support , pulmonology- Dr Rock Operations: None Procedures: None Summary of Care Provided: The patient is a 74 year old M with a PMH as outlined who was admitted via the ED on 11/16/2019 with a complaint of generalised malaise and weakness, as well as shortness of breath, cough and rhinorrhea. On admission, chemistry profile showed potassium of 3.1, with normal lactate levels. CTA of hte chest showed no evidence of PE< and showed ill defined ground glass opacities and cystic changes bilaterally, which was similar to prior chest imaging from 2019. Pulmonary function studies completed in February 2018 also showed evidence of restrictive ventilatory impairment with disporportionate reduction in diffusing capacity. On admission, WBC was 6.3, with Hb of 12. COVID test done was negative. CT of the brain showed no acute intracranial pathology. He was admitted and managed for acute metabolic encephalopathy due to upper respiratory infection likely viral. He was initially admitted to the COVID unit but since COVID test was negative respiratory panel was positive for rhinovirus, patient was transferred out of the car repeated. Pulmonology was consulted. He was started on IV ceftriaxone and azithromycin. Patient symptoms resolved and he was saturating well on his baseline 2 L of oxygen. Respiratory panel was positive for rhinovirus. Respiratory culture grew gram-negative rods possibly Pseudomonas species. Patient remained stable and he was discharged home on 11/18/2019 with a prescription for p.o. levofloxacin for 3 days. He is to follow-up with his primary care doctor and pulmonology. He is uses 2 L of oxygen as prescribed for shortness of breath. Patient seen and examined prior to discharge. He had no complaints. Review systems otherwise negative. Labs and vitals reviewed. Home medication reviewed and reconciled. O/E: Vital Signs Temp Pulse Resp BP Pulse Ox 97.0 F L 74 16 155/77 H 97 11/18/19 08:18 11/18/19 08:18 11/18/19 08:18 11/18/19 08:18 11/18/19 08:18 [] General: Alert, Oriented x3, Cooperative, No apparent distress HEENT: Atraumatic, PERRLA, EOMI, Normocephalic, - - erythema of conjuctiva of right eye- no discharge or pain Oral: Dry Mucosa Neck: Supple, No JVD, Negative Carotid Bruits Lungs: Clear to auscultation, Normal air movement, No rhonchi, No wheeze, No rales Cardiovascular: Regular rate, Regular Rhythm, Normal S1, Normal S2, No murmurs Abdomen: Bowel Sounds Present, Soft, Non Tender, Non-Distended, No Hepato-splenomegaly Extremities: No clubbing, No cyanosis, No edema, Capillary Refill Less than 3 Seconds Skin: No rashes, No breakdown Musculoskeletal: No Tenderness to Palpation of Joints or Extremities Lymphatic: No Cervical, Supraclavicular, or Inguinal Adenopathy Neurological: Cranial nerves II-XII grossly intact, Neuro grossly intact, Motor Exam 5/5 strength throughout Psych/Mental Status: Normal Affect, Appropriate, Alert and oriented to time, place, person, mood and affect Plan is for discharge home today. Patient Problems: Active and Suspected Problems (Last Reviewed 09/21/19 @ 10:48 by Jayne Li) Pneumonia (Acute) Suspected COVID-19 virus infection (Suspected) Encephalopathy (Acute) Hypoxia (Acute) - Physical Exam Vitals/I&O's: Vital Signs Temp Pulse Resp BP Pulse Ox 97.0 F L 74 16 155/77 H 97 11/18/19 08:18 11/18/19 08:18 11/18/19 08:18 11/18/19 08:18 11/18/19 08:18 Oxygen Flow Rate (L/min) 92 Oxygen Delivery Method Room Air Weight: 147 lb 7.828 oz Body Mass Index (BMI) 21.7 Finger Stick Blood Glucose 159 Intake and Output for Last 24 Hours 11/16/19 11/17/19 11/18/19 23:59 23:59 23:59 Intake Total 805 / 805 3506.67 / 3506.67 733.33 / 733.33 Balance 805 / 805 3506.67 / 3506.67 733.33 / 733.33 Microbiology Past 72 Hours 11/17/19 00:03 Mucosa - Nasopharyngeal Respiratory Panel (PCR) - Final Rhinovirus 11/16/19 00:00 Urine, Clean Catch Streptococcus pneumoniae Antigen (M - Final 11/16/19 00:00 Urine, Clean Catch Legionella Antigen - Final Laboratory Results 11/18/19 06:02: WBC 6.1, RBC 3.97 L, Hgb 11.3 L, Hct 35.5 L, MCV 89.4, MCH 28.5, MCHC 31.8 L, RDW Std Deviation 43.9, RDW Coeff of Abad 13.3, Plt Count 390, MPV 9.6, Immature Gran % (Auto) 1.000 H, Neut % (Auto) 59.5, Lymph % (Auto) 17.6 L, [place] % (Auto) 10.8 H, Eos % (Auto) 10.6 H, Baso % (Auto) 0.5, Absolute Neuts (auto) 3.6, Absolute Lymphs (auto) 1.08, Nucleated RBC % 0 11/18/19 06:02: Sodium 138, Potassium 3.5, Chloride 108 H, Carbon Dioxide 26.0, Anion Gap 4 L, BUN 16, Creatinine 0.68 L, Estim Creat Clear Calc 60.59, Est GFR (MDRD) Af Amer 147, Est GFR (MDRD) Non-Af 122, BUN/Creatinine Ratio 23.6 H, Glucose 90, Calcium 8.0 L Diagnostic Data Brain CT 11/16/19 15:03 IMPRESSION: 1. Chronic involutional changes without evidence of acute intracranial or calvarial abnormality. 2. Sinusitis. Electronically Signed: Chris Servin DO at 16:44 EDT Tel [phone], Service support , Chest X-Ray 11/16/19 15:38 IMPRESSION: Ill-defined subpleural groundglass opacities are seen more prominent in the lung bases , may represent atypical pneumonia or viral pneumonia (COVID-19 ?). Electronically Signed: Hai Cruz, at 16:26 EDT Tel , Service support , Chest CTA 11/16/19 22:21 IMPRESSION: 1. No evidence of pulmonary embolus. 2. No aortic dissection or aneurysm. 3. Minimal ground glass infiltrates most marked in the upper lobes. This appears unchanged. 4. Mild cardiomegaly. 5. Degenerative changes of the thoracic spine. Electronically Signed: Chris Servin DO at 23:47 EDT Tel [phone], Service support , Current Medications Acetaminophen (Tylenol) 650 mg PO Q6H PRN PRN PRN Reason: Pain Score 1-10/Temp > 100.7 F Al Hydroxide/Mg Hydroxide (Mylanta Ii) 30 ml PO Q6H PRN PRN PRN Reason: Gastric Burning Albuterol Sulfate (Ventolin Aerosols) 2.5 mg INHALATION Q2H PRN PRN PRN Reason: Dyspnea, wheezing Aspirin (Aspirin, Baby) 81 mg PO DAILY@0800 [facility] Last Admin: 11/18/19 08:27 Dose: 81 mg Documented by: Enoxaparin Sodium (Lovenox) 40 mg SC DAILY [facility] Last Admin: 11/18/19 08:28 Dose: Not Given Documented by: Famotidine (Pepcid) 20 mg PO BID [facility] Last Admin: 11/18/19 08:27 Dose: 20 mg Documented by: Guaifenesin (Mucinex) 1,200 mg PO BID [facility] Last Admin: 11/18/19 08:27 Dose: 1,200 mg Documented by: Sodium Chloride () 1,000 mls @ 100 mls/hr IV .Q10H [facility] Last Admin: 11/18/19 05:33 Dose: 100 mls/hr Documented by: Ceftriaxone Sodium 2 gm/ (Sodium Chloride) 50 mls @ 100 mls/hr IV Q24H [facility] Last Infusion: 11/17/19 22:12 Dose: Infused Documented by: Azithromycin 500 mg/ Dextrose 255 mls @ 250 mls/hr IV Q24H [facility] Last Infusion: 11/17/19 23:43 Dose: Infused Documented by: Sodium Chloride () 250 mls @ 15 mls/hr IV .[id number] PRN PRN Reason: Saline Flush Sodium Chloride () 250 mls @ 15 mls/hr IV .[id number] PRN PRN Reason: Additional IVPB Infusion Ipratropium [place] (Atrovent Nasal [place] (G)) 2 spray NASAL TID [facility] Last Admin: 11/18/19 08:21 Dose: 1 sprays Documented by: Magnesium Chloride (Mag64) 128 mg PO BID [facility] Last Admin: 11/18/19 08:31 Dose: 128 mg Documented by: Magnesium Hydroxide (Milk Of Magnesia) 30 ml PO DAILY PRN PRN PRN Reason: Constipation Meloxicam (Mobic) 15 mg PO DAILY PRN PRN PRN Reason: Pain Score 1-10 Ondansetron HCl (Zofran) 4 mg IV Q8H PRN PRN PRN Reason: NAUSEA/VOMITING Prochlorperazine Edisylate (Compazine Iv) 5 mg IV Q4H PRN PRN PRN Reason: Breakthrough Nausea/Vomiting Psyllium Hydrophilic Mucilloid (Metamucil) 1 packet PO DAILY PRN PRN PRN Reason: Constipation Senna/Docusate Sodium (Senokot-S, [place]-Colace) 2 tablet PO BID PRN PRN PRN Reason: Constipation Sodium Chloride () 10 - 40 ml IV UD PRN PRN Reason: SALINE FLUSH Last Admin: 11/17/19 05:52 Dose: 30 ml Documented by: Throat Lozenges (Cepacol Sore Throat Lozenge) 1 lozenge MUCOUS MEM Q2H PRN PRN PRN Reason: SORE THROAT Discharge Diet: Low fat/ Low Cholesterol Discharge Activity: Return to Normal Activity Weight Bearing Status: Weight bearing as tolerated Call your doctor if you observe: Fever of 101 or Higher, Shortness of breath, Dizziness, Fainting spells, Swelling in the ankles, Increased palpitations (irregular heartbeat) Home Medications: Medications to take at Discharge magnesium oxide 400 mg PO BID cap 01/26/18 apremilast 30 mg tablet 30 mg PO BID 08/23/18 guaifenesin 1,200 mg tablet, extended release 12 hr 1,200 mg PO BID 09/21/19 meloxicam 15 mg tablet 15 mg PO DAILY PRN 09/21/19 ipratropium bromide 42 mcg (0.06 %) nasal spray 2 spray INTRANASAL TID #15 ml 11/16/19 predniSONE tablet 40 mg PO DAILY 5 Days #10 tab 11/18/19 Following Prescriptions Were Given to Patient: predniSONE tablet 40 mg PO DAILY 5 Days #10 tab Transmission Status: Pending to [facility]/pharmacy #[id number] Primary Care Physician: Wally Epstein MD [Primary Care Provider] - Please follow up with your Primary Care Physician in: 1-2 weeks Please Follow Up With: Eliceo Mukherjee MD When: 1-2 weeks Patient Instructions: ED VIRAL URI w/ Wheezing Adult Disposition: Home Minutes spent on discharge:: 40 Patient Condition:: Stable Medical Necessity - Tobacco Use Smoking Status: Never smoker Tobacco Use: Non-smoker Meaningful Use Info Meaningful Use Diagnoses (Choose all that apply): None applicable Inpatient E&M: 10238 Disch Hosp
--- NOTE | 2019-11-20 12:12 | CASEMGMT ---
ETIENNE NEVAREZ Discharge Follow-up Phone Call: SEKOU: Brynn Strata: 3 Call Date: 11/20/2019 Discharge Date: 11/18/2019 Time of Call: 1210 Admitting Diagnosis: Pneumonia, Rhinovirus Discharge follow-up call attempted to pt's phone. Identifying voicemail received and a message left requesting a return call if questions or concerns regarding pt's discharge. Levi Howard RN CM
== END 2019-11-18 15:46 | disposition home or self-care (01) | DRG 193 ==
LOC: ED 15:26 → ICU 22:15 → PCU 11-17 08:27
PROVIDERS: Admitting Provider Family Medicine; Emergency Provider Emergency Medicine; PCP Family Medicine; Visit Provider Student in an Organized Health Care Education/Training Program
CPT/HCPCS: 36415; 36600; 70450; 71045; 71275; 80048; 80053; 81001; 82728; 82803; 82962; 83605; 83615; 83735; 84145; 84484; 85025; 85379; 85610; 85730; 86140; 87040; 87070; 87077; 87184; 87186; 87205; 87449; 87633; 87635; 93005; 94667; 94668; 97162; 97167; 99251; 99285; J7030; J7040; J7050; Q9967; A4216; G0463; J0696; U0003